=== PATIENT | male | born 1970 | race Caucasian/White ===

== ENCOUNTER → 2018-02-16 | Outpatient (CLI) | payer OTHER ==
--- NOTE | 2018-02-18 12:47 | US ---
EXAMINATION TYPE: US thyroid st tissue head/neck DATE OF EXAM: 02/16/2018 COMPARISON: NONE CLINICAL HISTORY: E03.9 Hypothyroidism. Recent abnormal labs, pt on Synthroid x 3 years GLAND SIZE: Right Lobe: 5.1 x 2.6 x 2.0 cm Overall Parenchyma: heterogenous Left Lobe: 4.5 x 2.1 x 1.8 cm Overall Parenchyma: heterogeneous Isthmus Thickness: 0.5 cm Bilateral neck scanned, no evidence of lymphadenopathy. Bilateral thyroid enlarged, grossly heterogen eous. IMPRESSION: No discrete nodules bilateral heterogenous thyroid lobes
== END | disposition home or self-care (01) ==
LOC: RADUSWWP 16:59
PROVIDERS: ATTEND Family Medicine
DX: E03.9 Hypothyroidism, unspecified (principal)
CPT/HCPCS: 76536

== ENCOUNTER → 2019-07-12 | Outpatient (CLI) | payer OTHER ==
--- NOTE | 2019-07-12 15:51 | FL ---
EXAMINATION TYPE: FL UGI air DATE OF EXAM: 07/12/2019 COMPARISON: NONE HISTORY: Gastroesophageal reflux TECHNIQUE: A double contrast UGI study is performed. FINDINGS: Esophagus dilates to normal caliber has normal contour to the gastroesophageal junction. Gastroesopha geal junction opens to normal caliber. Reflux into the distal one half of the esophagus is evident du ring the exam. There is complete stripping of the esophageal bolus the horizontal drinking position. Fundus body and antrum of the stomach visualized is normal without intraluminal or extramural defects . Barium readily empties into the normally positioned duodenal cap and sweep. Some mild fold hypertro phy of the proximal first portion of the duodenum may be present. Consider mild duodenitis.. IMPRESSION: 1. Gastroesophageal reflux in the distal one half of the esophagus. 2. Some mild proximal duodenitis is not excluded.
--- NOTE | 2019-07-12 15:56 | US ---
EXAMINATION TYPE: US abdomen complete DATE OF EXAM: 07/12/2019 COMPARISON: NONE CLINICAL HISTORY: K21.9Gastro-esophageal reflux disease with, R10.11. EXAM MEASUREMENTS: Liver Length: 14.9 cm Gallbladder Wall: 0.2 cm CBD: 0.2 cm Spleen: 12.1 cm Right Kidney: 12.4 x 5.5 x 5.2 cm Left Kidney: 11.6 x 5.4 x 5.7 cm Patient of large body habitus, technically difficult and limited exam. Pancreas: Obscured by bowel gas Liver: Increased attenuation, decreased visualization of vessels suggestive of fatty infiltrate, pro bable focal fatty sparing adjacent to gallbladder Gallbladder: no obvious masses, limited visualization Evidence for sonographic Tompkins's sign: no CBD: limited visualization, appears wnl as seen Spleen: wnl Right Kidney: wnl Left Kidney: wnl Upper IVC: wnl Abd Aorta: Mostly obscured by overlying bowel gas IMPRESSION: 1. Visualized portions of the abdomen ultrasound or unremarkable. Bowel gas causes some limitation du ring this exam.
== END | disposition home or self-care (01) ==
LOC: RADUSWWP 08:07
PROVIDERS: ATTEND Family Medicine
DX: K21.9 Gastro-esophageal reflux disease without esophagitis (principal); R14.3 Flatulence
CPT/HCPCS: 74246; 76700

== ENCOUNTER → 2019-07-25 | Outpatient (CLI) | payer OTHER ==
--- NOTE | 2019-07-25 10:01 | NM ---
EXAMINATION TYPE: NM hepatobiliary w EF DATE OF EXAM: 07/25/2019 COMPARISON: Correlation ultrasound 07/12/2019 HISTORY: 49-year-old male right upper quadrant pain TECHNIQUE: After the intravenous administration of 5.3 mCi Tc 99m Mebrofenin hepatobiliary scintigrap hy is performed. Immediate images post injection. FINDINGS: There is satisfactory initial accumulation of tracer by the liver. The gallbladder is visualized wit hin 12 minutes. The small bowel activity is noted within 6 minutes. At one hour 8 ounces of oral en sure plus is given to mimic CCK and gallbladder ejection fraction is calculated at 3 %, significantly diminished. IMPRESSION: 1. No scintigraphic evidence for acute cholecystitis. 2. However, gallbladder ejection fraction is markedly diminished at 3%. Findings can be seen with chr onic cholecystitis or biliary dyskinesia. The latter is favored given the relatively normal ultrasoun d appearance on 07/12/2019
== END | disposition home or self-care (01) ==
LOC: RADNMMAIN 06:45
PROVIDERS: ATTEND Family Medicine
DX: R10.11 Right upper quadrant pain (principal); R14.0 Abdominal distension (gaseous)
CPT/HCPCS: 78226; A9537

== ENCOUNTER 2020-01-10 08:01 | Day surgery (SDC) | payer OTHER ==
[2020-01-08 11:29] VITALS: BMI 29.6
[~2020-01-10 08:01] MED LIST: LACTATED RINGERS 1,000 ML IV SCH
[2020-01-10 08:24] VITALS: RESP 16
[2020-01-10 08:34] VITALS: TEMP 97.2
[2020-01-10] MEDS ORDERED: LIDOCAINE 1% (10MG/ML) FOR IV START INTRADERMA ONE (08:38)
[2020-01-10] MEDS ORDERED: PROPOFOL 10 MG/ML 20 ML VIAL IV ONE (09:11)
[2020-01-10] MEDS ORDERED: IV FLUID CONTINUATION 1,000 ML IV ONE (09:30)
--- NOTE | 2020-01-10 09:41 | P.PCN ---
Date of Procedure: 01/10/20 Procedure(s) Performed: BRIEF HISTORY: Patient is a 48-year-old pleasant white male scheduled for an elective colonoscopy as a part of screening for colorectal neoplasia. PROCEDURE PERFORMED: Colonoscopy. PREOPERATIVE DIAGNOSIS: Screening for colon cancer. IV sedation per Anesthesia. PROCEDURE: After informed consent was obtained, the patient, was brought into the endoscopy unit. IV sedation was administered by Anesthesia under continuous monitoring. Digital rectal examination was normal. Initially the Olympus CF-160 flexible video colonoscope was then inserted in the rectum, gradually advanced into the cecum without any difficulty. Careful examination was performed as the scope was gradually being withdrawn. Ileocecal valve and the appendiceal orifice were visualized and appeared normal. Prep was poor and several areas of the colon. Mucosa of the cecum, ascending colon, transverse colon, descending colon, sigmoid colon, and rectum appeared normal. Retroflexion was performed in the rectum and no lesions were seen. The patient tolerated the procedure well. IMPRESSION: Poor prep in several areas of the colon No evidence of colorectal neoplasia RECOMMENDATIONS: Findings of this examination were discussed with the patient as well as her family. He was advised to have a repeat colonoscopy in 5 years from now..
[2020-01-10 09:54] VITALS: BP 100/58; PULSE 48
--- NOTE | 2020-01-14 08:25 | CDI ---
Date: 01.14.2020 CDS/Leaf Sorter Name: Fely Bhakta Phone: If any questions, call Margy Rosa Warm In Worker at [phone] Patient Name: Milo Barahona Admit Date 01.10.20 Discharge Date: 01.10.20 ATTENTION: The [facility] Coding Staff appreciate your assistance in clarifying documentation. Please respond to the clarification below the line at the bottom and electronically sign. The [facility] Coding staff will review the response and follow-up if needed. Please note: Queries are made part of the Legal Health Record. If you have any questions, please contact the Warm In Worker. Dear Dr. Blanc In order to code to the greatest specificity and for the greatest reimbursement I need the following clarification: On the anesthesia record (pg 1) the anesthesiologist has documented History of polyps, but you have no mention of this on your H&P or colonoscopy. On your colonoscopy you have documented advised to have a repeat screening colonoscopy 5 years. Please clarify whether pt has history of colon polyps. Thank you for your kind consideration. MTDD
== END 2020-01-10 10:20 | disposition home or self-care (01) ==
LOC: ORWHC2ENDO 08:01
PROVIDERS: ATTEND Internal Medicine Gastroenterology
DX: Z12.11 Encounter for screening for malignant neoplasm of colon (principal); E07.9 Disorder of thyroid, unspecified; K21.9 Gastro-esophageal reflux disease without esophagitis; Z79.890 Hormone replacement therapy; Z79.899 Other long term (current) drug therapy
CPT/HCPCS: G0121; J2704

== ENCOUNTER 2020-08-04 09:07 | Inpatient (IN) | payer OTHER ==
[2020-08-04] MEDS ORDERED: ALBUTEROL HFA INHALER INHALATION STA (09:24)
[2020-08-04] MEDS ORDERED: ACETAMINOPHEN TAB 325 MG TAB PO STA (09:24)
[2020-08-04] MEDS ORDERED: ACETAMINOPHEN TAB 325 MG TAB PO PRN (09:24)
[2020-08-04] MEDS ORDERED: SODIUM CHLORIDE 0.9% 1,000 ML IV STA (09:26)
--- NOTE | 2020-08-04 09:28 | ED ---
General Adult HPI - General Chief complaint: Shortness of Breath Stated complaint: Covid+, MARY Time Seen by Provider: 08/04/20 09:10 Source: patient, RN notes reviewed Mode of arrival: ambulatory Limitations: no limitations - History of Present Illness Initial comments: Patient is a pleasant 50-year-old male presenting to the emergency Department with complaints of covid symptoms. Patient was diagnosed 9 days ago. Patient does have cough with minimal occasional sputum. Patient is having waxing and waning fevers, last Tylenol was 2 AM. Patient does feel somewhat short of breath. Patient has fatigue. Patient has nausea and vomited twice. No a bdominal pain or diarrhea. Patient feels dehydrated. - Related Data Home Medications Medication Instructions Recorded Confirmed Levothyroxine Sodium [Synthroid] 50 mcg PO DAILY 08/05/14 08/04/20 Pantoprazole Sodium [Protonix] 40 mg PO HS 08/05/14 08/04/20 ALPRAZolam [Xanax] 0.5 mg PO BID PRN 08/04/20 08/04/20 Acetaminophen Tab [Tylenol Tab] 1,000 mg PO Q6H PRN 08/04/20 08/04/20 Citalopram Hydrobromide [CeleXA] 20 mg PO HS 08/04/20 08/04/20 Tamsulosin HCl [Flomax] 0.8 mg PO HS 08/04/20 08/04/20 Allergies Allergy/AdvReac Type Severity Reaction Status Date / Time No Known Allergies Allergy Verified 08/04/20 10:47 Review of Systems ROS Statement: Those systems with pertinent positive or pertinent negative responses have been documented in the HPI. ROS Other: All systems not noted in ROS Statement are negative. Constitutional: Denies: fever Eyes: Denies: eye pain ENT: Denies: ear pain Respiratory: Reports: as per HPI, cough, dyspnea Cardiovascular: Denies: palpitations Endocrine: Reports: fatigue Gastrointestinal: Reports: nausea, vomiting. Denies: abdominal pain Genitourinary: Denies: urgency Musculoskeletal: Denies: back pain Skin: Denies: rash Neurological: Denies: confusion Past Medical History Past Medical History: GERD/Reflux, Thyroid Disorder Additional Past Medical History / Comment(s): hx migraine, constipation, bloating and change in stool, History of Any Multi-Drug Resistant Organisms: None Reported Past Surgical History: Appendectomy, Orthopedic Surgery, Tonsillectomy Additional Past Surgical History / Comment(s): left knee arthroscopy x 2, left arm tendon repair Past Anesthesia/Blood Transfusion Reactions: No Reported Reaction Past Psychological History: No Psychological Hx Reported Smoking Status: Never smoker Past Alcohol Use History: Rare Past Drug Use History: None Reported - Past Family History Mother Family Medical History: No Reported History General Exam Limitations: no limitations General appearance: alert, in no apparent distress Head exam: Present: normocephalic Eye exam: Present: normal appearance Neck exam: Present: normal inspection Respiratory exam: Present: normal lung sounds bilaterally Cardiovascular Exam: Present: regular rate, normal rhythm GI/Abdominal exam: Present: soft. Absent: tenderness Extremities exam: Present: normal inspection. Absent: pedal edema, calf tenderness Neurological exam: Present: alert Psychiatric exam: Present: normal affect, normal mood Skin exam: Present: normal color Course Vital Signs 08/04/20 08/04/20 09:12 11:17 Temperature 101.3 F H 100.0 F H Pulse Rate 60 60 Respiratory 22 22 Rate Blood Pressure 120/68 O2 Sat by Pulse 93 L 97 Oximetry EKG Findings - EKG Comments: EKG Findings:: Normal sinus rhythm 61. CT 142. QRS 86. QT 428. QTC 4:30 P left axis. Normal QRS. No acute ST change. Medical Decision Making - Medical Decision Making Patient reevaluated and updated. Patient states he is feeling somewhat better. Patient states his pulse ox was 88% at home. Dr. De La Paz has been paged for admission, covering for Dr. Oleary. - Lab Data Result diagrams: 08/04/20 09:26 08/04/20 09:26 Lab Results 08/04/20 08/04/20 08/04/20 Range/Units 09:26 09:26 09:26 WBC 4.4 (3.8-10.6) k/uL RBC 4.57 (4.30-5.90) m/uL Hgb 13.8 (13.0-17.5) gm/dL Hct 39.4 (39.0-53.0) % MCV 86.3 (80.0-100.0) fL MCH 30.2 (25.0-35.0) pg MCHC 35.0 (31.0-37.0) g/dL RDW 11.9 (11.5-15.5) % Plt Count 140 L (150-450) k/uL MPV 7.8 Neutrophils % 80 % Lymphocytes % 12 % Monocytes % 5 % Eosinophils % 0 % Basophils % 0 % Neutrophils # 3.5 (1.3-7.7) k/uL Lymphocytes # 0.6 L (1.0-4.8) k/uL Monocytes # 0.2 (0-1.0) k/uL Eosinophils # 0.0 (0-0.7) k/uL Basophils # 0.0 (0-0.2) k/uL PT 10.0 (9.0-12.0) sec INR 0.9 (<1.2) APTT 26.4 (22.0-30.0) sec D-Dimer 0.63 H (<0.60) mg/L FEU Sodium 134 L (137-145) mmol/L Potassium 4.6 (3.5-5.1) mmol/L Chloride 98 (98-107) mmol/L Carbon Dioxide 28 (22-30) mmol/L Anion Gap 8 mmol/L BUN 15 (9-20) mg/dL Creatinine 0.84 (0.66-1.25) mg/dL Est GFR (CKD-EPI)AfAm >90 (>60 ml/min/1.73 sqM) Est GFR (CKD-EPI)NonAf >90 (>60 ml/min/1.73 sqM) Glucose 109 H (74-99) mg/dL Plasma Lactic Acid Sathish (0.7-2.0) mmol/L Calcium 8.8 (8.4-10.2) mg/dL Magnesium 2.0 (1.6-2.3) mg/dL Total Bilirubin 0.8 (0.2-1.3) mg/dL AST 48 (17-59) U/L ALT 26 (4-49) U/L Alkaline Phosphatase 54 (38-126) U/L Lactate Dehydrogenase 1179 H (313-618) U/L C-Reactive Protein 166.9 H (<10.0) mg/L Total Protein 6.5 (6.3-8.2) g/dL Albumin 3.7 (3.5-5.0) g/dL 08/04/20 Range/Units 09:26 WBC (3.8-10.6) k/uL RBC (4.30-5.90) m/uL Hgb (13.0-17.5) gm/dL Hct (39.0-53.0) % MCV (80.0-100.0) fL MCH (25.0-35.0) pg MCHC (31.0-37.0) g/dL RDW (11.5-15.5) % Plt Count (150-450) k/uL MPV Neutrophils % % Lymphocytes % % Monocytes % % Eosinophils % % Basophils % % Neutrophils # (1.3-7.7) k/uL Lymphocytes # (1.0-4.8) k/uL Monocytes # (0-1.0) k/uL Eosinophils # (0-0.7) k/uL Basophils # (0-0.2) k/uL PT (9.0-12.0) sec INR (<1.2) APTT (22.0-30.0) sec D-Dimer (<0.60) mg/L FEU Sodium (137-145) mmol/L Potassium (3.5-5.1) mmol/L Chloride (98-107) mmol/L Carbon Dioxide (22-30) mmol/L Anion Gap mmol/L BUN (9-20) mg/dL Creatinine (0.66-1.25) mg/dL Est GFR (CKD-EPI)AfAm (>60 ml/min/1.73 sqM) Est GFR (CKD-EPI)NonAf (>60 ml/min/1.73 sqM) Glucose (74-99) mg/dL Plasma Lactic Acid Sathish 1.0 (0.7-2.0) mmol/L Calcium (8.4-10.2) mg/dL Magnesium (1.6-2.3) mg/dL Total Bilirubin (0.2-1.3) mg/dL AST (17-59) U/L ALT (4-49) U/L Alkaline Phosphatase (38-126) U/L Lactate Dehydrogenase (313-618) U/L C-Reactive Protein (<10.0) mg/L Total Protein (6.3-8.2) g/dL Albumin (3.5-5.0) g/dL - Radiology Data Radiology results: image reviewed (Chest x-ray does show some bilateral fluffy infiltrates lower lungs) Disposition Clinical Impression: Pneumonia due to COVID-19 virus Disposition: ADMITTED IP TO THIS HOSP Is patient prescribed a controlled substance at d/c from ED?: No Referrals: Barbie Oleary DO [Primary Care Provider] - 1-2 days Decision Time: 11:25
[2020-08-04 09:54] LABS: Basophils % (A) 0 %; Eosinophils % (A) 0 %; HCT 39.4 % (39.0-53.0); HGB 13.8 gm/dL (13.0-17.5); Lymphocytes # (A) 0.6 k/uL (1.0-4.8); Lymphocytes % (A) 12 %; MCH 30.2 pg (25.0-35.0); MCV 86.3 fL (80.0-100.0); Mean Platelet Volume 7.8; Monocytes # (A) 0.2 k/uL (0-1.0); Monocytes % (A) 5 %; Neutrophils # (A) 3.5 k/uL (1.3-7.7); Neutrophils % (A) 80 %; Platelet Count 140 k/uL (150-450); RBC 4.57 m/uL (4.30-5.90); RDW 11.9 % (11.5-15.5); WBC 4.4 k/uL (3.8-10.6)
[2020-08-04 10:09] LABS: ALT 26 U/L (4-49); AST 48 U/L (17-59); African American GFR (CKD) >90 (>60 ml/min/1.73 sqM); Albumin 3.7 g/dL (3.5-5.0); Alkaline Phosphatase 54 U/L (38-126); Anion Gap 8 mmol/L; Blood Urea Nitrogen 15 mg/dL (9-20); Calcium 8.8 mg/dL (8.4-10.2); Carbon Dioxide 28 mmol/L (22-30); Chloride 98 mmol/L (98-107); Glucose 109 mg/dL (74-99); LDH 1179 U/L (313-618); Non-African American GFR(CKD) >90 (>60 ml/min/1.73 sqM); Potassium 4.6 mmol/L (3.5-5.1); Sodium 134 mmol/L (137-145); Total Bilirubin 0.8 mg/dL (0.2-1.3); Total Protein 6.5 g/dL (6.3-8.2)
[2020-08-04 10:12] LABS: INR 0.9 (<1.2); Partial Thromboplastin Time 26.4 sec (22.0-30.0)
--- NOTE | 2020-08-04 10:13 | XR ---
EXAMINATION TYPE: XR chest 1V portable DATE OF EXAM: 08/04/2020 Comparison: None Clinical History: 1-year-old male Suspected COVID-19 pneumonia Findings: The cardiomediastinal silhouette, aorta, and pulmonary vasculature are within normal limits. There a re patchy opacities in the periphery of the mid and lower lungs. No pleural effusion. Impression: Patchy infiltrates in the mid and lower aspect of the lungs bilaterally. Findings can be seen with C OVID pneumonia.
[2020-08-04 10:42] LABS: D-Dimer 0.63 mg/L FEU (<0.60)
[2020-08-04 10:48] LABS: C Reactive Protein 166.9 mg/L (<10.0)
[2020-08-04] MEDS ORDERED: NALOXONE 0.4 MG/ML 1 ML VIAL IV PRN (11:27)
[2020-08-04] MEDS: ZINC SULFATE 220 MG CAP PO SCH (12:50)
[2020-08-04] MEDS: SODIUM CHLORIDE 0.9% 1,000 ML IV SCH (12:50)
[2020-08-04] MEDS: ASCORBIC ACID 500 MG TAB PO SCH ×2 (12:51→21:42)
[2020-08-04] MEDS: CHOLECALCIFEROL 25 MCG (1000 IU) TABLET PO SCH (12:51)
[2020-08-04] MEDS: ENOXAPARIN 40 MG/0.4 ML SYRINGE SQ SCH (12:52)
[2020-08-04] MEDS: DEXAMETHASONE SOD PHOSPHATE 10 MG/ML 1 ML VIAL IV SCH (12:52)
[2020-08-04] MEDS ORDERED: ACETAMINOPHEN TAB 500 MG TAB PO PRN (13:05)
[2020-08-04 16:31] LABS: Ferritin 1087.2 ng/mL (22.0-322.0)
--- NOTE | 2020-08-04 20:50 | P.HPIM ---
History of Present Illness This is a pleasant 50 years old male with past medical history of GERD, hypothyroidism, constipation, migraine. Patient presents because of breathing difficulty and chest discomfort He was tested positive for frias virus on 07/26 his works at [employer] was tested positive for Covid on July 25, he had some chest tightness and coughing on 07/26 so he went and tested for coronavirus, he has little white phlegm as well but 6 days ago he started having shortness of breath which made him very suspicious having the first infection, not patient has been tested every 2 weeks negative for coronavirus distal 07/26 because he works at [employer]. He has right upper chest pain with coughing only. No diarrhea. No abdominal pain or nausea vomiting. No weakness or headache. He denies smoking, alcohol or illicit drugs. On admission he is febrile at 101.3. He is saturating 93% on room air and 97% and 2-3 L oxygen nasal cannula. His respiratory rate of 22 breaths per minute CBC, BMP and liver enzymes are unremarkable. D-dimer is slightly elevated at 0.63. Lactate dehydrogenase is elevated at 1179 and C-reactive protein at 166. EKG showing normal sinus rhythm at [address]-T changes. Chest x-ray: Showing patchy infiltrates in the mid and lower aspects of the lungs bilaterally. Findings are consistent with covid pneumonia In the emergency room patient was started on Lovenox, vitamin C and Review of Systems CONSTITUTIONAL: No fever, no malaise, no fatigue. HEENT: No recent visual problems or hearing problems. Denied any sore throat. CARDIOVASCULAR: No orthopnea, PND, no palpitations, no syncope. PULMONARY: No chest wall tenderness, no hemoptysis. GASTROINTESTINAL: No diarrhea, no nausea, no vomiting, no abdominal pain. Normoactive bowel sounds. NEUROLOGICAL: No headaches, no weakness, no numbness. HEMATOLOGICAL: Denies any bleeding or petechiae. GENITOURINARY: Denies any burning micturition, frequency, or urgency. MUSCULOSKELETAL/RHEUMATOLOGICAL: Denies any joint pain, swelling, or any muscle pain. ENDOCRINE: Denies any polyuria or polydipsia. Past Medical History Past Medical History: GERD/Reflux, Thyroid Disorder Additional Past Medical History / Comment(s): hx migraine, constipation, bloating and change in stool, History of Any Multi-Drug Resistant Organisms: None Reported Past Surgical History: Appendectomy, Orthopedic Surgery, Tonsillectomy Additional Past Surgical History / Comment(s): left knee arthroscopy x 2, left arm tendon repair Past Anesthesia/Blood Transfusion Reactions: No Reported Reaction Past Psychological History: No Psychological Hx Reported Smoking Status: Never smoker Past Alcohol Use History: Rare Past Drug Use History: None Reported - Past Family History Mother Family Medical History: No Reported History Medications and Allergies Home Medications Medication Instructions Recorded Confirmed Type Levothyroxine Sodium [Synthroid] 50 mcg PO DAILY 08/05/14 08/04/20 History Pantoprazole Sodium [Protonix] 40 mg PO HS 08/05/14 08/04/20 History ALPRAZolam [Xanax] 0.5 mg PO BID PRN 08/04/20 08/04/20 History Acetaminophen Tab [Tylenol Tab] 1,000 mg PO Q6H PRN 08/04/20 08/04/20 History Citalopram Hydrobromide [CeleXA] 20 mg PO HS 08/04/20 08/04/20 History Tamsulosin HCl [Flomax] 0.8 mg PO HS 08/04/20 08/04/20 History Allergies Allergy/AdvReac Type Severity Reaction Status Date / Time No Known Allergies Allergy Verified 08/04/20 10:47 Physical Exam Vitals: Vital Signs Temp Pulse Resp BP Pulse Ox 08/04/20 11:17 100.0 F H 60 22 97 08/04/20 09:12 101.3 F H 60 22 120/68 93 L Intake and Output 08/03/20 08/04/20 08/04/20 22:59 06:59 14:59 Other: Weight 81.647 kg GENERAL: The patient is alert and oriented x3, not in any acute distress. Well developed, well nourished. HEENT: Pupils are round and equally reacting to light. EOMI. No scleral icterus. No conjunctival pallor. Normocephalic, atraumatic. No pharyngeal erythema. No thyromegaly. CARDIOVASCULAR: S1 and S2 present. No murmurs, rubs, or gallops. PULMONARY: Chest is clear to auscultation, no wheezing or crackles. ABDOMEN: Soft, nontender, nondistended, normoactive bowel sounds. No palpable organomegaly. MUSCULOSKELETAL: No joint swelling or deformity. EXTREMITIES: No cyanosis, clubbing, or pedal edema. NEUROLOGICAL: Gross neurological examination did not reveal any focal deficits. SKIN: No rashes. No petechiae Results CBC & Chem 7: 08/04/20 09:26 08/04/20 09:26 Labs: Abnormal Lab Results - Last 24 Hours (Table) 08/04/20 08/04/20 08/04/20 Range/Units 09:26 09:26 09:26 Plt Count 140 L (150-450) k/uL Lymphocytes # 0.6 L (1.0-4.8) k/uL D-Dimer 0.63 H (<0.60) mg/L FEU Sodium 134 L (137-145) mmol/L Glucose 109 H (74-99) mg/dL Lactate Dehydrogenase 1179 H (313-618) U/L C-Reactive Protein 166.9 H (<10.0) mg/L Assessment and Plan Assessment: Acute covid pneumonitis Acute hypoxic respiratory failure Increase inflammatory markers Hypothyroidism History of migraine History of constipation History of GERD Plan: This is a pleasant 50 years old male who presents with acute Covid pneumonia and acute hypoxic respiratory failure. Start the patient on vitamin C, zinc, dexamethasone. Lovenox is started and monitored d-dimer. Check a procalcitonin. Call for pulmonary consult. Labs and medication were reviewed.. Continue same treatment. Continue with symptomatic treatment. Resume home medication. Monitor lytes and vitals. DVT and GI prophylaxis. Further recommendations depends on the clinical course of the patient DVT prophylaxis: Subcutaneous Lovenox GI Prophylaxis: Ppi Prognosis is guarded
[2020-08-04] MEDS: TAMSULOSIN 0.4 MG CAP.ER.24H PO SCH (21:41)
[2020-08-04] MEDS: CITALOPRAM HYDROBROMIDE 20 MG TAB PO SCH (21:41)
[2020-08-04] MEDS: PANTOPRAZOLE 40 MG TABLET PO SCH (21:41)
[2020-08-05 05:02] LABS: Glucose,Whole Blood 142 mg/dL (75-99)
[2020-08-05] MEDS: LEVOTHYROXINE 50 MCG TAB PO SCH (06:23)
[2020-08-05] MEDS: DEXAMETHASONE SOD PHOSPHATE 10 MG/ML 1 ML VIAL IV SCH (08:12)
[2020-08-05] MEDS: ENOXAPARIN 40 MG/0.4 ML SYRINGE SQ SCH (08:25)
[2020-08-05] MEDS: ASCORBIC ACID 500 MG TAB PO SCH ×2 (08:26→21:58)
[2020-08-05] MEDS: ZINC SULFATE 220 MG CAP PO SCH (08:26)
[2020-08-05] MEDS: CHOLECALCIFEROL 25 MCG (1000 IU) TABLET PO SCH (08:26)
[2020-08-05] MEDS: DOXYCYCLINE 100 MG CAP PO SCH ×2 (10:50→21:58)
--- NOTE | 2020-08-05 15:55 | P.CNPUL ---
History of Present Illness Consult date: 08/05/20 Reason for consult: dyspnea, cough, hypoxemia Chief complaint: Shortness of breath and cough started 2 days ago History of present illness: This is a 50-year-old male with prior medical history significant for hypothyroidism and GERD and chronic migraine headache she he came into the hospital with tooth the day history of increased cough shortness of breath and difficulty in breathing, patient tested positive for cold with 19 on July 26, also his diagnosed with cold with pneumonia back in July 25 he has been bhatt ving mild headache all along except 2 days ago started having difficulty in breathing, spiking fever oxygen saturation is 90-93% with supplemental oxygen they do improve, patient noted to have a bilateral patchy infiltrate as well as elevated d-dimer, currently patient is resting comfortably but does get short of breath intermittently especially on activity Past Medical History Past Medical History: GERD/Reflux, Thyroid Disorder Additional Past Medical History / Comment(s): hx migraine, constipation, bloating and change in stool, History of Any Multi-Drug Resistant Organisms: None Reported Past Surgical History: Appendectomy, Orthopedic Surgery, Tonsillectomy Additional Past Surgical History / Comment(s): left knee arthroscopy x 2, left arm tendon repair Past Anesthesia/Blood Transfusion Reactions: No Reported Reaction Past Psychological History: No Psychological Hx Reported Smoking Status: Never smoker Past Alcohol Use History: Rare Past Drug Use History: None Reported - Past Family History Mother Family Medical History: No Reported History Medications and Allergies Home Medications Medication Instructions Recorded Confirmed Type Levothyroxine Sodium [Synthroid] 50 mcg PO DAILY 08/05/14 08/04/20 History Pantoprazole Sodium [Protonix] 40 mg PO HS 08/05/14 08/04/20 History ALPRAZolam [Xanax] 0.5 mg PO BID PRN 08/04/20 08/04/20 History Acetaminophen Tab [Tylenol Tab] 1,000 mg PO Q6H PRN 08/04/20 08/04/20 History Citalopram Hydrobromide [CeleXA] 20 mg PO HS 08/04/20 08/04/20 History Tamsulosin HCl [Flomax] 0.8 mg PO HS 08/04/20 08/04/20 History Allergies Allergy/AdvReac Type Severity Reaction Status Date / Time No Known Allergies Allergy Verified 08/04/20 10:47 Physical Exam Vitals: Vital Signs Temp Pulse Pulse Resp BP BP Pulse Ox 08/05/20 14:00 98.5 F 59 L 16 110/63 90 L 08/05/20 10:23 97.8 F 64 20 116/67 92 L 08/05/20 09:31 94 L 08/05/20 08:31 18 94 L 08/05/20 08:10 20 08/05/20 05:30 98.4 F 58 L 110/68 97 08/05/20 02:03 97.9 F 49 L 107/53 97 08/04/20 22:25 97.9 F 51 L 21 108/68 97 08/04/20 18:20 98.0 F 59 L 16 108/66 97 08/04/20 18:02 98.3 F 60 18 112/66 96 Intake and Output 08/05/20 08/05/20 08/05/20 06:59 14:59 22:59 Intake Total 200 Output Total 1200 Balance -1000 Intake: Intake, IV Titration 200 Amount Sodium Chloride 0.9% 1, 200 000 ml @ 20 mls/hr IV . Q24H [facility] Rx#:[id number] Output: Urine 1200 - Constitutional General appearance: average body habitus, cooperative, disheveled - EENT Eyes: EOMI, PERRLA Ears: bilateral: normal - Neck Neck: normal ROM Carotids: bilateral: upstroke normal Thyroid: bilateral: normal size - Respiratory Respiratory: bilateral: wheezing - Cardiovascular Rhythm: regular Heart sounds: normal: S1, S2 - Gastrointestinal General gastrointestinal: normal bowel sounds, soft - Integumentary Integumentary: normal turgor - Neurologic Neurologic: CNII-XII intact - Musculoskeletal Musculoskeletal: gait normal, generalized weakness, strength equal bilaterally - Psychiatric Psychiatric: A&O x's 3, appropriate affect, intact judgment & insight Results - Laboratory Findings CBC and BMP: 08/04/20 09:26 08/04/20 09:26 PT/INR, D-dimer PT 10.0 sec (9.0-12.0) 08/04/20 09:26 INR 0.9 (<1.2) 08/04/20 09:26 D-Dimer 0.63 mg/L FEU (<0.60) H 08/04/20 09:26 Abnormal lab findings: Abnormal Labs 08/04/20 08/04/2021 09:26 09:26 09:26 Plt Count 140 L Lymphocytes # 0.6 L D-Dimer 0.63 H Sodium 134 L Glucose 109 H POC Glucose (mg/dL) Ferritin 1087.2 H Lactate Dehydrogenase 1179 H C-Reactive Protein 166.9 H Procalcitonin 08/04/20 08/05/20 09:26 05:00 Plt Count Lymphocytes # D-Dimer Sodium Glucose POC Glucose (mg/dL) 142 H Ferritin Lactate Dehydrogenase C-Reactive Protein Procalcitonin 0.19 H - Diagnostic Findings Chest x-ray: report reviewed, image reviewed (Finding as noted above) Assessment and Plan Assessment: Acute hypoxic respiratory failure Code 19 pneumonia Hypothyroidism Elevated d-dimer due to inflammatory process GERD Plan: Continue supplemental oxygen Deep breathing exercise incentive spirometry Prone positioning Patient is not a candidate for REMdesivir as he is out of beneficial timeframe of therapy IV Decadron Lovenox Further recommendations pending plan of care as per clinical response of the patient Time with Patient: Greater than 30
--- NOTE | 2020-08-05 16:07 | P.PN ---
Subjective This is a pleasant 50 years old male with past medical history of GERD, hypothyroidism, constipation, migraine. 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 He has right upper chest pain with coughing only. No diarrhea. No abdominal pain or nausea vomiting. No weakness or headache. He denies smoking, alcohol or illicit drugs. On admission he is febrile at 101.3. He is saturating 93% on room air and 97% and 2-3 L oxygen nasal cannula. His respiratory rate of 22 breaths per minute CBC, BMP and liver enzymes are unremarkable. D-dimer is slightly elevated at 0.63. Lactate dehydrogenase is elevated at 1179 and C-reactive protein at 166. EKG showing normal sinus rhythm at [address]-T changes. Chest x-ray: Showing patchy infiltrates in the mid and lower aspects of the lungs bilaterally. Findings are consistent with covid pneumonia In the emergency room patient was started on Lovenox, vitamin C and 08/05/2020 Of some dyspnea although he feels a breathing is good and stable. He still have a little cough. And on examination he still have a bronchial breathing He is saturating 92% on 2 L oxygen this morning and distal vitals are stable. Broadcalcitonin is elevated at 0.19, he was started on ceftriaxone and Zith romax. Also I'll consult infectious disease team Lactate dehydrogenase is elevated at 1179, C-reactive protein 166, ferritin 1087 Review of Systems CONSTITUTIONAL: No fever, no malaise, no fatigue. HEENT: No recent visual problems or hearing problems. Denied any sore throat. CARDIOVASCULAR: No orthopnea, PND, no palpitations, no syncope. PULMONARY: No chest wall tenderness, no hemoptysis. GASTROINTESTINAL: No diarrhea, no nausea, no vomiting, no abdominal pain. Normoactive bowel sounds. NEUROLOGICAL: No headaches, no weakness, no numbness. Active Medications Generic Name Dose Route Start Last Admin Trade Name Freq PRN Reason Stop Dose Admin Acetaminophen 1,000 mg 08/04/20 13:05 08/04/20 18:09 Acetaminophen Tab 500 Mg Tab PO 1,000 mg Q6H PRN Administration Fever Alprazolam 0.5 mg 08/04/20 13:05 Alprazolam 0.5 Mg Tab PO BID PRN Anxiety Ascorbic Acid 500 mg 08/04/20 11:30 08/05/20 08:26 Ascorbic Acid 500 Mg Tab PO 500 mg BID [facility] Administration Benzocaine/Menthol 1 each 08/04/20 18:42 Benzocaine/Menthol Lozeng 1 Each Lozenge MUCOUS MEM Q4HR PRN Sore Throat Cholecalciferol 125 mcg 08/04/20 11:30 08/05/20 08:26 Cholecalciferol 25 Mcg (1000 Iu) Tablet PO 125 mcg DAILY [facility] Administration Citalopram Hydrobromide 20 mg 08/04/20 21:00 08/04/20 21:41 Citalopram Hydrobromide 20 Mg Tab PO Not Given HS [facility] Dexamethasone Sodium Phosphate 6 mg 08/04/20 11:30 08/05/20 08:12 Dexamethasone Sod Phosphate 10 Mg/Ml 1 Ml Vial IV 6 mg DAILY [facility] Administration Doxycycline Monohydrate 100 mg 08/05/20 09:00 08/05/20 10:50 Doxycycline 100 Mg Cap PO 100 mg BID [facility]EN Administration Enoxaparin Sodium 40 mg 08/04/20 11:30 08/05/20 08:25 Enoxaparin 40 Mg/0.4 Ml Syringe SQ 40 mg DAILY [facility] Administration Sodium Chloride 1,000 mls @ 20 mls/hr 08/04/20 11:30 08/04/20 12:50 Saline 0.9% IV 20 mls/hr .Q24H [facility] Administration Ceftriaxone Sodium 1 gm/ 50 mls @ 100 mls/hr 08/05/20 09:00 08/05/20 10:49 Sodium Chloride IVPB 100 mls/hr Q24HR [facility] Administration Levothyroxine Sodium 50 mcg 08/05/20 06:30 08/05/20 06:23 Levothyroxine 50 Mcg Tab PO 50 mcg 0630 [facility] Administration Naloxone HCl 0.2 mg 08/04/20 11:27 Naloxone 0.4 Mg/Ml 1 Ml Vial IV Q2M PRN Opioid Reversal Pantoprazole Sodium 40 mg 08/04/20 21:00 08/04/20 21:41 Pantoprazole 40 Mg Tablet PO Not Given HS [facility] Tamsulosin HCl 0.8 mg 08/04/20 21:00 08/04/20 21:41 Tamsulosin 0.4 Mg Cap.Er.24h PO Not Given HS [facility] Zinc Sulfate 220 mg 08/04/20 11:30 08/05/20 08:26 Zinc Sulfate 220 Mg Cap PO 220 mg DAILY [facility]EN Administration Objective - Vital Signs Vital signs: Vital Signs Temp 98.5 F 08/05/20 14:00 Pulse 59 L 08/05/20 14:00 Resp 16 08/05/20 14:00 BP 110/63 08/05/20 14:00 Pulse Ox 90 L 08/05/20 14:00 Intake & Output 08/04/20 08/05/20 08/05/20 18:59 06:59 18:59 Intake Total 200 Output Total 1200 Balance -1000 Weight 81.647 kg Intake: Intake, IV Titration 200 Amount Sodium Chloride 0.9% 1, 200 000 ml @ 20 mls/hr IV . Q24H [facility] Rx#:[id number] Output: Urine 1200 - Labs CBC & Chem 7: 08/04/20 09:26 08/04/20 09:26 Labs: Abnormal Lab Results - Last 24 Hours (Table) 08/04/20 08/04/20 08/05/20 Range/Units 09:26 09:26 05:00 POC Glucose (mg/dL) 142 H (75-99) mg/dL Ferritin 1087.2 H (22.0-322.0) ng/mL Procalcitonin 0.19 H (0.02-0.09) ng/mL Microbiology - Last 24 Hours (Table) 08/04/20 09:41 Blood Culture - Preliminary Blood No Growth after 24 hours 08/04/20 09:26 Blood Culture - Preliminary Blood No Growth after 24 hours Assessment and Plan Assessment: Acute covid pneumonitis with possible bacterial superinfection Acute hypoxic respiratory failure Increase inflammatory markers Hypothyroidism History of migraine History of constipation History of GERD Plan: This is a pleasant 50 years old male who presents with acute Covid pneumonia and acute hypoxic respiratory failure. Start the patient on vitamin C, zinc, dexamethasone. Lovenox is started and monitored d-dimer. Start ceftriaxone and Zithromax. Follow-up with a recommendation from infectious disease and pulmonary consult. Labs and medication were reviewed.. Continue same treatment. Continue with symptomatic treatment. Resume home medication. Monitor lytes and vitals. DVT and GI prophylaxis. Further recommendations depends on the clinical course of the patient DVT prophylaxis: Subcutaneous Lovenox GI Prophylaxis: Ppi Prognosis is guarded
[2020-08-05] MEDS: SODIUM CHLORIDE 0.9% 1,000 ML IV SCH (17:58)
[2020-08-05] MEDS: ALPRAZolam 0.5 MG TAB PO PRN (21:58)
[2020-08-05] MEDS: PANTOPRAZOLE 40 MG TABLET PO SCH (21:59)
[2020-08-05] MEDS: TAMSULOSIN 0.4 MG CAP.ER.24H PO SCH (21:59)
[2020-08-05] MEDS: CITALOPRAM HYDROBROMIDE 20 MG TAB PO SCH (21:59)
[2020-08-05] MEDS: BENZOCAINE/MENTHOL LOZENG 1 EACH LOZENGE MUCOUS MEM PRN (21:59)
[2020-08-06] MEDS: LEVOTHYROXINE 50 MCG TAB PO SCH ×2 (06:19→07:37)
[2020-08-06] MEDS: SODIUM CHLORIDE 0.9% 1,000 ML IV SCH (06:20)
--- NOTE | 2020-08-06 06:32 | CONS ---
CONSULTATION DATE OF SERVICE: 08/05/2020 REASON FOR CONSULTATION: COVID-19. HISTORY OF PRESENT ILLNESS: The patient is a 50-year-old male presenting to the ER at [facility] yesterday morning for evaluation of weakness, lethargic, no energy, in addition to the shortness of breath and cough. The patient's symptoms have been going on since July 25 in this patient who denies having any headache. Initially started with more of a sore throat and URI symptoms and cold. Initially felt a little better and then afterwards started having more symptoms, more shortness of breath and cough which has been moderate in intensity with occasional sputum production. Denies any pleuritic chest pain, nausea and did have 2 times vomited. Denies any abdominal pain. Did have some diarrhea. With these symptoms, the patient was evaluated by the ER physician. On arrival to the ER, the patient did have fever of 101.9 Fahrenheit. No fever since then. The patient is currently 92% on 2 L nasal cannula. The patient did have a normal white count with lymphopenia and elevated D-dimer. Kidney function was normal. Inflammatory markers are elevated. Liver enzymes are normal. Prograf 0.19. The patient has been treated with Rocephin and doxycycline in addition to the dexamethasone and Lovenox. Infectious Disease was consulted for further management regarding his COVID infection. REVIEW OF SYSTEMS: Positive points have been mentioned in HPI. Rest of systems are negative. PAST MEDICAL HISTORY: Gastroesophageal reflux disease, hypothyroidism, migraine headache. PAST SURGICAL HISTORY: Appendectomy, left knee arthroscopy, left arm tendon repair. SOCIAL HISTORY: No history of smoking. No drinking or drug use. FAMILY HISTORY: No pertinent findings noticed. ALLERGIES: No known drug allergies. MEDICATIONS: The patient is currently on Tylenol, Xanax, vitamin C, Cepacol lozenges, Rocephin 1 g daily, Celexa, Decadron, doxycycline, Lovenox, Synthroid, Narcan, Flomax, and zinc. PHYSICAL EXAMINATION: VITAL SIGNS: Blood pressure 106/66 with a pulse of 62, temperature 98.5, he is 92% on 2 L nasal cannula. GENERAL DESCRIPTION: Patient is a middle-aged male lying in bed in no distress. No tachypnea or accessory muscles of respiration use. HEENT: Examination shows no pallor or scleral icterus. Oral mucous membrane is dry. NECK: Trachea central, no thyromegaly. LUNGS: Unlabored breathing, decreased breath sounds at the bases. No wheeze or crackle. HEART: S1-S2, regular rate and rhythm. ABDOMEN: Soft, no tenderness. No guarding or rigidity. EXTREMITIES: No edema of the feet. SKIN: No rash or mass palpable. NEUROLOGICAL: Patient is awake, alert, oriented times three. Mood and affect normal. LABS: Hemoglobin is 13.2, white count 4.4, d-dimer is 0.63. Liver enzymes are normal. Inflammatory markers elevated. Chest x-ray, bilateral interstitial infiltrates. DIAGNOSTIC IMPRESSION: Patient admitted to the hospital with weakness, no energy, shortness of breath and cough. This patient has been diagnosed with COVID-19 infection. The patient's symptoms have been going on for more than 10 days now and apparently was considered to be not part of the therapeutic window for the remdesivir therapy and seems to have shown response to the current supportive treatment. PLAN: 1. The patient to continue with Lovenox, dexamethasone, zinc, ascorbic acid. 2. May continue with Rocephin and doxycycline in view of the elevated procalcitonin. 3. Droplet isolation and respiratory support. 4. We will follow on clinical condition to further adjust medication if needed. Thank you for this consultation. Will follow this patient along with you. MMODL / IJN: [id number] /
[2020-08-06] MEDS: DEXAMETHASONE SOD PHOSPHATE 10 MG/ML 1 ML VIAL IV SCH (07:38)
[2020-08-06] MEDS: ASCORBIC ACID 500 MG TAB PO SCH ×2 (07:39→20:48)
[2020-08-06] MEDS: ZINC SULFATE 220 MG CAP PO SCH (07:39)
[2020-08-06] MEDS: CHOLECALCIFEROL 25 MCG (1000 IU) TABLET PO SCH (07:39)
[2020-08-06] MEDS: ENOXAPARIN 40 MG/0.4 ML SYRINGE SQ SCH (07:39)
[2020-08-06] MEDS: DOXYCYCLINE 100 MG CAP PO SCH ×2 (07:41→20:49)
--- NOTE | 2020-08-06 11:16 | P.PN ---
Subjective Progress Note Date: 08/06/20 Principal diagnosis: Acute hypoxic respiratory failure Code 19 pneumonia Secondary bacterial pneumonia Hypothyroidism Elevated d-dimer due to inflammatory process GERD 08/06/2020, patient seen eval reexamined during the rounds labs reviewed medications reviewed care plan discussed, patient continued to have cough shortness of breath, any sputum production, discussed with primary service as well as the RN to obtain a sputum sample patient remains on broad-spectrum antibiotics, and steroids with supplemental oxygen, patient noted to have elevated d-dimer coming down, inflammatory parameters including ferritin, LDH and C-reactive protein elevated pro calcitonin is also elevated This is a 50-year-old male with prior medical history significant for hypothyroidism and GERD and chronic migraine headache she he came into the hospital with tooth the day history of increased cough shortness of breath and difficulty in breathing, patient tested positive for cold with 19 on July 26, also his diagnosed with cold with pneumonia back in July 25 he has been having mild headache all along except 2 days ago started having difficulty in breathing, spiking fever oxygen saturation is 90-93% with supplemental oxygen they do improve, patient noted to have a bilateral patchy infiltrate as well as elevated d-dimer, currently patient is resting comfortably but does get short of breath intermittently especially on activity Objective - Vital Signs Vital signs: Vital Signs Temp 97.7 F 08/06/20 10:01 Pulse 45 L 08/06/20 10:01 Resp 17 08/06/20 10:01 BP 107/67 08/06/20 10:01 Pulse Ox 92 L 08/06/20 10:01 Intake & Output 08/05/20 08/06/20 08/06/20 18:59 06:59 18:59 Intake Total 500 240 Balance 500 240 Intake: Intake, IV Titration 500 240 Amount Sodium Chloride 0.9% 1, 400 240 000 ml @ 20 mls/hr IV . Q24H [facility] Rx#:[id number] cefTRIAXone 1 gm In 100 Sodium Chloride 0.9% 50 ml @ 100 mls/hr IVPB Q24HR [facility] Rx#:[id number] Other: # Voids 2 - Exam - Constitutional General appearance: average body habitus, cooperative, disheveled - EENT Eyes: EOMI, PERRLA Ears: bilateral: normal - Neck Neck: normal ROM Carotids: bilateral: upstroke normal Thyroid: bilateral: normal size - Respiratory Respiratory: bilateral: wheezing - Cardiovascular Rhythm: regular Heart sounds: normal: S1, S2 - Gastrointestinal General gastrointestinal: normal bowel sounds, soft - Integumentary Integumentary: normal turgor - Neurologic Neurologic: CNII-XII intact - Musculoskeletal Musculoskeletal: gait normal, generalized weakness, strength equal bilaterally - Psychiatric Psychiatric: A&O x's 3, appropriate affect, intact judgment & insight - Labs CBC & Chem 7: 08/04/20 09:26 08/04/20 09:26 Labs: Microbiology - Last 24 Hours (Table) 08/05/20 12:36 Gram Stain - Preliminary Sputum Sputum Culture - Preliminary 08/04/20 09:41 Blood Culture - Preliminary Blood No Growth after 24 hours 08/04/20 09:26 Blood Culture - Preliminary Blood No Growth after 24 hours Assessment and Plan Assessment: Acute hypoxic respiratory failure Code 19 pneumonia Secondary bacterial pneumonia Hypothyroidism Elevated d-dimer due to inflammatory process GERD Plan: Continue supplemental oxygen Deep breathing exercise incentive spirometry Prone positioning Patient is not a candidate for REMdesivir as he is out of beneficial timeframe of therapy IV Decadron Sputum culture Broad-spectrum antibiotics Lovenox Further recommendations pending plan of care as per clinical response of the patient Time with Patient: Greater than 30
[2020-08-06 11:57] LABS: Basophils # (A) 0.01 X 10*3/uL (0.00-0.10); Basophils % (A) 0.1 %; Eosinophils # (A) 0 X 10*3/uL (0.04-0.35); Eosinophils % (A) 0 %; HCT 40.8 % (39.6-50.0); HGB 13.9 g/dL (13.0-17.0); Lymphocytes # (A) 0.96 X 10*3/uL (0.90-5.00); MCH 30.5 pg (27.0-32.0); MCHC 34.1 g/dL (32.0-37.0); MCV 89.5 fL (80.0-97.0); Monocytes # (A) 0.54 X 10*3/uL (0.20-1.00); Monocytes % (A) 5.6 %; Neutrophils # (A) 8.06 X 10*3/uL (1.80-7.70); Neutrophils % (A) 83.7 %; Platelet Count 226 X 10*3/uL (140-440); RBC 4.56 X 10*6/uL (4.40-5.60); RDW 11.5 % (11.5-14.5); WBC 9.63 X 10*3/uL (4.50-10.00)
[2020-08-06 12:19] LABS: BUN/Creat Ratio 26.25 Ratio (12.00-20.00); C Reactive Protein 4.8 mg/dL (0.0-0.8); Non-African American GFR(CKD) 102.7 (60.0-200.0); Potassium 4.9 mmol/L (3.5-5.5)
--- NOTE | 2020-08-06 12:33 | P.PN ---
Subjective This is a pleasant 50 years old male with past medical history of GERD, hypothyroidism, constipation, migraine. Patient presents because of breathing difficulty and chest discomfort He was tested positive for frias virus on 07/26 his works at [employer] was tested positive for Covid on July 25, he had some chest tightness and coughing on 07/26 so he went and tested for coronavirus, he has little white phlegm as well but 6 days ago he started having shortness of breath which made him very suspicious having the first infection, not patient has been tested every 2 weeks negative for coronavirus distal 07/26 because he works at [employer]. He has right upper chest pain with coughing only. No diarrhea. No abdominal pain or nausea vomiting. No weakness or headache. He denies smoking, alcohol or illicit drugs. On admission he is febrile at 101.3. He is saturating 93% on room air and 97% and 2-3 L oxygen nasal cannula. His respiratory rate of 22 breaths per minute CBC, BMP and liver enzymes are unremarkable. D-dimer is slightly elevated at 0.63. Lactate dehydrogenase is elevated at 1179 and C-reactive protein at 166. EKG showing normal sinus rhythm at [address]-T changes. Chest x-ray: Showing patchy infiltrates in the mid and lower aspects of the lungs bilaterally. Findings are consistent with covid pneumonia In the emergency room patient was started on Lovenox, vitamin C and 08/05/2020 Of some dyspnea although he feels a breathing is good and stable. He still have a little cough. And on examination he still have a bronchial breathing He is saturating 92% on 2 L oxygen this morning and distal vitals are stable. Broadcalcitonin is elevated at 0.19, he was started on ceftriaxone and Zith romax. Also I'll consult infectious disease team Lactate dehydrogenase is elevated at 1179, C-reactive protein 166, ferritin 1087 08/06/2020 Patient remains slightly tachypneic and dyspneic. He is mildly hypoxic with oxygen saturation 92% and 2 L oxygen via nasal cannula, heart rate is 45-58. Labs showing stable CBC with slightly elevated WBC within the reference range at 9.6 but also patient is on steroids. D-dimer is normal today at 0.38. BMP is unremarkable C-reactive protein is trending down to 4.8 Sputum culture specimen is contaminated and repeat sputum culture is ordered per recommendation Patient remains on doxycycline, ceftriaxone as well as dexamethasone, vitamin C and zinc Pulmonary team on the case Check TSH and echocardiogram and consider cardiology consultation. tele: Sinus bradycardia 40-60 Review of Systems CONSTITUTIONAL: No fever, no malaise, no fatigue. HEENT: No recent visual problems or hearing problems. Denied any sore throat. CARDIOVASCULAR: No orthopnea, PND, no palpitations, no syncope. PULMONARY: No chest wall tenderness, no hemoptysis. GASTROINTESTINAL: No diarrhea, no nausea, no vomiting, no abdominal pain. Normoactive bowel sounds. NEUROLOGICAL: No headaches, no weakness, no numbness. Active Medications Generic Name Dose Route Start Last Admin Trade Name Freq PRN Reason Stop Dose Admin Acetaminophen 1,000 mg 08/04/20 13:05 08/04/20 18:09 Acetaminophen Tab 500 Mg Tab PO 1,000 mg Q6H PRN Administration Fever Alprazolam 0.5 mg 08/04/20 13:05 08/05/20 21:58 Alprazolam 0.5 Mg Tab PO 0.5 mg BID PRN Administration Anxiety Ascorbic Acid 500 mg 08/04/20 11:30 08/06/20 07:39 Ascorbic Acid 500 Mg Tab PO 500 mg BID QUYEN Administration Benzocaine/Menthol 1 each 08/04/20 18:42 08/05/20 21:59 Benzocaine/Menthol Lozeng 1 Each Lozenge MUCOUS MEM 1 each Q4HR PRN Administration Sore Throat Cholecalciferol 125 mcg 08/04/20 11:30 08/06/20 07:39 Cholecalciferol 25 Mcg (1000 Iu) Tablet PO 125 mcg DAILY QUYEN Administration Citalopram Hydrobromide 20 mg 08/04/20 21:00 08/05/20 21:59 Citalopram Hydrobromide 20 Mg Tab PO 20 mg HS [facility]EN Administration Dexamethasone Sodium Phosphate 6 mg 08/04/20 11:30 08/06/20 07:38 Dexamethasone Sod Phosphate 10 Mg/Ml 1 Ml Vial IV 6 mg DAILY QUYEN Administration Doxycycline Monohydrate 100 mg 08/05/20 09:00 08/06/20 07:41 Doxycycline 100 Mg Cap PO 100 mg BID QUYEN Administration Enoxaparin Sodium 40 mg 08/04/20 11:30 08/06/20 07:39 Enoxaparin 40 Mg/0.4 Ml Syringe SQ 40 mg DAILY QUYEN Administration Sodium Chloride 1,000 mls @ 20 mls/hr 08/04/20 11:30 08/06/20 06:20 Saline 0.9% IV 20 mls/hr .Q24H QU[facility]EN Administration Ceftriaxone Sodium 1 gm/ 50 mls @ 100 mls/hr 08/05/20 09:00 08/06/20 07:39 Sodium Chloride IVPB 100 mls/hr Q24HR [facility] Administration Levothyroxine Sodium 50 mcg 08/05/20 06:30 08/06/20 07:37 Levothyroxine 50 Mcg Tab PO Not Given 0630 [facility] Naloxone HCl 0.2 mg 08/04/20 11:27 Naloxone 0.4 Mg/Ml 1 Ml Vial IV Q2M PRN Opioid Reversal Pantoprazole Sodium 40 mg 08/04/20 21:00 08/05/20 21:59 Pantoprazole 40 Mg Tablet PO 40 mg HS [facility] Administration Tamsulosin HCl 0.8 mg 08/04/20 21:00 08/05/20 21:59 Tamsulosin 0.4 Mg Cap.Er.24h PO 0.8 mg HS [facility] Administration Zinc Sulfate 220 mg 08/04/20 11:30 08/06/20 07:39 Zinc Sulfate 220 Mg Cap PO 220 mg DAILY QUYEN Administration Objective - Vital Signs Vital signs: Vital Signs Temp 97.7 F 08/06/20 10:01 Pulse 45 L 08/06/20 10:01 Resp 17 08/06/20 10:01 BP 107/67 08/06/20 10:01 Pulse Ox 92 L 08/06/20 10:01 Intake & Output 08/05/20 08/06/20 08/06/20 18:59 06:59 18:59 Intake Total 500 240 Balance 500 240 Intake: Intake, IV Titration 500 240 Amount Sodium Chloride 0.9% 1, 400 240 000 ml @ 20 mls/hr IV . Q24H [facility] Rx#:[id number] cefTRIAXone 1 gm In 100 Sodium Chloride 0.9% 50 ml @ 100 mls/hr IVPB Q24HR [facility] Rx#:[id number] Other: # Voids 2 - Exam GENERAL: The patient is alert and oriented x3, not in any acute distress. Well developed, well nourished. HEENT: Pupils are round and equally reacting to light. EOMI. No scleral icterus. No conjunctival pallor. Normocephalic, atraumatic. No pharyngeal erythema. No thyromegaly. CARDIOVASCULAR: S1 and S2 present. No murmurs, rubs, or gallops. -PULMONARY: Chest is clear to auscultation, no wheezing or crackles. Bilateral bronchial breathing. ABDOMEN: Soft, nontender, nondistended, normoactive bowel sounds. No palpable organomegaly. MUSCULOSKELETAL: No joint swelling or deformity. EXTREMITIES: No cyanosis, clubbing, or pedal edema. NEUROLOGICAL: Gross neurological examination did not reveal any focal deficits. SKIN: No rashes. No petechiae - Labs CBC & Chem 7: 08/06/20 06:53 08/06/20 06:53 Labs: Abnormal Lab Results - Last 24 Hours (Table) 08/06/20 08/06/20 Range/Units 06:53 06:53 Immature Gran # 0.06 H (0.00-0.04) X 10*3/uL Neutrophils # 8.06 H (1.80-7.70) X 10*3/uL Eosinophils # 0 L (0.04-0.35) X 10*3/uL BUN/Creatinine Ratio 26.25 H (12.00-20.00) Ratio Glucose 144 H (70-110) mg/dL C-Reactive Protein 4.8 H (0.0-0.8) mg/dL Microbiology - Last 24 Hours (Table) 08/04/20 09:26 Blood Culture - Preliminary Blood No Growth after 48 hours 08/04/20 09:41 Blood Culture - Preliminary Blood No Growth after 48 hours 08/05/20 12:36 Gram Stain - Preliminary Sputum Sputum Culture - Preliminary Assessment and Plan Assessment: Acute covid pneumonitis with possible bacterial superinfection Acute hypoxic respiratory failure Increase inflammatory markers Sinus bradycardia Hypothyroidism History of migraine History of constipation History of GERD Plan: This is a pleasant 50 years old male who presents with acute Covid pneumonia and acute hypoxic respiratory failure. Start the patient on vitamin C, zinc, dexamethasone. Lovenox is started and monitored d-dimer. Start ceftriaxone and Zithromax. Follow-up with a recommendation from infectious disease and pulmonary consult. Follow-up TSH and echocardiogram, cardiology consult. C ontinue with levothyroxine Labs and medication were reviewed.. Continue same treatment. Continue with symptomatic treatment. Resume home medication. Monitor lytes and vitals. DVT and GI prophylaxis. Further recommendations depends on the clinical course of the patient DVT prophylaxis: Subcutaneous Lovenox GI Prophylaxis: Ppi Prognosis is guarded
[2020-08-06 12:38] LABS: Ferritin 808.2 ng/mL (22.0-322.0)
[2020-08-06] MEDS: ALPRAZolam 0.5 MG TAB PO PRN (16:34)
--- NOTE | 2020-08-06 18:10 | ECHOF ---
Referral Reason:Rule out heart disease MEASUREMENTS -------- HEIGHT: 165.1 cm WEIGHT: 81.6 kg BP: 107/67 RVIDd: 3.4 cm (< 3.3) IVSd: 1.3 cm (0.6 - 1.1) LVIDd: 4.6 cm (3.9 - 5.3) LVPWd: 1.0 cm (0.6 - 1.1) IVSs: 1.8 cm LVIDs: 2.9 cm LVPWs: 1.7 cm LA Diam: 3.5 cm (2.7 - 3.8) LAESV Index (A-L): 26.53 ml/m Ao Diam: 3.9 cm (2.0 - 3.7) AV Cusp: 2.2 cm (1.5 - 2.6) MV EXCURSION: 17.570 mm (> 18.000) MV EF SLOPE: 141 mm/s (70 - 150) EPSS: 0.5 cm MV E Mo: 0.55 m/s MV DecT: 439 ms MV A Mo: 1.04 m/s MV E/A Ratio: 0.53 RAP: 5.00 mmHg RVSP: 22.99 mmHg FINDINGS -------- Resting bradycardia (HR<60bpm). This was a technically good study. The left ventricular size is normal. There is mild concentric left ventricular hypertrophy. Overa ll left ventricular systolic function is normal with, an EF between 60 - 65 %. The right ventricle is mildly enlarged. Normal LA size by volume 22+/-6 ml/m2. The right atrium is normal in size. Interatrial and interventricular septum intact. The aortic valve is trileaflet, and appears structurally normal. No aortic stenosis or regurgitation. There is trace mitral regurgitation. Mild tricuspid regurgitation present. Right ventricular systolic pressure is normal at < 35 mmHg. Trace/mild (physiologic) pulmonic regurgitation. The aortic root is dilated measuring 3.9cm. Normal inferior vena cava with normal inspiratory collapse consistent with estimated right atrial pre ssure of 5 mmHg. There is no pericardial effusion. CONCLUSIONS -------- 1. Resting bradycardia (HR<60bpm). 2. The left ventricular size is normal. 3. There is mild concentric left ventricular hypertrophy. 4. Overall left ventricular systolic function is normal with, an EF between 60 - 65 %. 5. The right ventricle is mildly enlarged. 6. Normal LA size by volume 22+/-6 ml/m2. 7. There is trace mitral regurgitation. 8. Mild tricuspid regurgitation present. 9. Trace/mild (physiologic) pulmonic regurgitation. 10. The aortic root is dilated measuring 3.9cm. 11. There is no pericardial effusion. SALES ADVISOR: Rosa Maria Tucker RDCS
[2020-08-06] MEDS: CITALOPRAM HYDROBROMIDE 20 MG TAB PO SCH (20:48)
[2020-08-06] MEDS: TAMSULOSIN 0.4 MG CAP.ER.24H PO SCH (20:48)
[2020-08-06] MEDS: PANTOPRAZOLE 40 MG TABLET PO SCH (20:49)
[2020-08-06] MEDS ORDERED: ALPRAZolam 1 MG TAB PO STA (20:56)
--- NOTE | 2020-08-06 23:15 | PN ---
PROGRESS NOTE DATE OF SERVICE: 08/06/2020 REASON FOR FOLLOWUP: Pneumonia. INTERVAL HISTORY: The patient is currently afebrile. The patient is breathing more comfortably. The patient denies having any chest pain, shortness of breath. He continues to have a cough with occasional sputum. No abdominal pain or diarrhea. PHYSICAL EXAMINATION: Blood pressure is 116/70 with a pulse of 43, temperature 97.5. He is 94% on 2 L nasal cannula. General description is a middle-aged male lying in bed in no distress. RESPIRATORY SYSTEM: Unlabored breathing with decreased intensity of breath sounds. No wheeze. HEART: S1, S2. Regular rate and rhythm. ABDOMEN: Soft. No tenderness. LABS: Hemoglobin is 13.9, white count of 9.63, BUN of 21, creatinine 0.8. DIAGNOSTIC IMPRESSION AND PLAN: Patient with acute COVID-19 pneumonia in this patient considered to be out of therapeutic window for remdesivir. Currently on dexamethasone, Lovenox, zinc; to continue along with respiratory support. Monitor his clinical course closely. MMODL / LESLIEN: [id number] /
--- NOTE | 2020-08-07 09:23 | P.PN ---
Subjective Progress Note Date: 08/07/20 Principal diagnosis: Acute hypoxic respiratory failure Code 19 pneumonia Secondary bacterial pneumonia Hypothyroidism Elevated d-dimer due to inflammatory process GERD 08/07/2020, patient seen eval examined during the rounds labs reviewed medications reviewed still get short of breath on activity and exertion, especially during coughing, patient remains on steroids breathing treatments and broad-spectrum antibiotics on 2 L nasal cannula, 08/06/2020, patient seen eval reexamined during the rounds labs reviewed medications reviewed care plan discussed, patient continued to have cough shortness of breath, any sputum production, discussed with primary service as well as the RN to obtain a sputum sample patient remains on broad-spectrum antibiotics, and steroids with supplemental oxygen, patient noted to have elevated d-dimer coming down, inflammatory parameters including ferritin, LDH and C-reactive protein elevated pro calcitonin is also elevated This is a 50-year-old male with prior medical history significant for hypothyroidism and GERD and chronic migraine headache she he came into the hospital with tooth the day history of increased cough shortness of breath and difficulty in breathing, patient tested positive for cold with 19 on July 26, also his diagnosed with cold with pneumonia back in July 25 he has been having mild headache all along except 2 days ago started having difficulty in breathing, spiking fever oxygen saturation is 90-93% with supplemental oxygen they do improve, patient noted to have a bilateral patchy infiltrate as well as elevated d-dimer, currently patient is resting comfortably but does get short of breath intermittently especially on activity Objective - Vital Signs Vital signs: Vital Signs Temp 98.2 F 08/07/20 05:47 Pulse 45 L 08/07/20 05:47 Resp 18 08/07/20 05:47 BP 112/71 08/07/20 05:47 Pulse Ox 95 08/07/20 05:47 Intake & Output 08/06/20 08/07/20 08/07/20 18:59 06:59 18:59 Intake Total 480 Balance 480 Intake: Oral 480 Other: Voiding Method Toilet - Exam - Constitutional General appearance: average body habitus, cooperative, disheveled - EENT Eyes: EOMI, PERRLA Ears: bilateral: normal - Neck Neck: normal ROM Carotids: bilateral: upstroke normal Thyroid: bilateral: normal size - Respiratory Respiratory: bilateral: wheezing - Cardiovascular Rhythm: regular Heart sounds: normal: S1, S2 - Gastrointestinal General gastrointestinal: normal bowel sounds, soft - Integumentary Integumentary: normal turgor - Neurologic Neurologic: CNII-XII intact - Musculoskeletal Musculoskeletal: gait normal, generalized weakness, strength equal bilaterally - Psychiatric Psychiatric: A&O x's 3, appropriate affect, intact judgment & insight - Labs CBC & Chem 7: 08/06/20 06:53 08/06/20 06:53 Labs: Abnormal Lab Results - Last 24 Hours (Table) 08/06/20 08/06/20 Range/Units 06:53 06:53 Immature Gran # 0.06 H (0.00-0.04) X 10*3/uL Neutrophils # 8.06 H (1.80-7.70) X 10*3/uL Eosinophils # 0 L (0.04-0.35) X 10*3/uL BUN/Creatinine Ratio 26.25 H (12.00-20.00) Ratio Glucose 144 H (70-110) mg/dL Ferritin 808.2 H (22.0-322.0) ng/mL C-Reactive Protein 4.8 H (0.0-0.8) mg/dL Microbiology - Last 24 Hours (Table) 08/05/20 12:36 Gram Stain - Final Sputum Sputum Culture - Final 08/04/20 09:26 Blood Culture - Preliminary Blood No Growth after 48 hours 08/04/20 09:41 Blood Culture - Preliminary Blood No Growth after 48 hours Assessment and Plan Assessment: Acute hypoxic respiratory failure Code 19 pneumonia Secondary bacterial pneumonia Hypothyroidism Elevated d-dimer due to inflammatory process GERD Plan: Continue supplemental oxygen Deep breathing exercise incentive spirometry Prone positioning Patient is not a candidate for REMdesivir as he is out of beneficial timeframe of therapy IV Decadron Sputum culture Broad-spectrum antibiotics Lovenox Further recommendations pending plan of care as per clinical response of the patient Time with Patient: Greater than 30
[2020-08-07] MEDS: CHOLECALCIFEROL 25 MCG (1000 IU) TABLET PO SCH (09:31)
[2020-08-07] MEDS: ENOXAPARIN 40 MG/0.4 ML SYRINGE SQ SCH (09:32)
[2020-08-07] MEDS: DEXAMETHASONE SOD PHOSPHATE 10 MG/ML 1 ML VIAL IV SCH (09:32)
[2020-08-07] MEDS: ZINC SULFATE 220 MG CAP PO SCH (09:32)
[2020-08-07] MEDS: DOXYCYCLINE 100 MG CAP PO SCH ×2 (09:32→20:39)
[2020-08-07] MEDS: ASCORBIC ACID 500 MG TAB PO SCH ×2 (09:32→20:39)
[2020-08-07] MEDS: ALPRAZolam 0.5 MG TAB PO PRN (12:46)
--- NOTE | 2020-08-07 13:22 | P.CRDCN ---
History of Present Illness History of present illness: HISTORY OF PRESENTING ILLNESS This is a pleasant 50-year-old male past medical history significant for hypothyroidism, GERD. 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 Patient presented to the hospital with difficulty breathing, right upper chest tightness with coughing. Productive cough with white phlem. Found to be COVID-19 positive. Patient is seen and examined and examined at bedside and, in no apparent distress. Patient does not have any complaints this morning. Prior to admission patient denies any sym ptoms of chest pain, palpitations, dizziness, lightheadedness, or syncope/pre- syncope. He currently denies any chest pain, palpitations, lightheadedness, dizziness, syncope. Patient denies any history of SC, stroke, hypertension, diabetes. Patient states he is very active at home. Denies tobacco use, alcohol use, illicit drug use. Laboratory data reviewed, sodium 134, potassium 4.9, creatinine 2.8, BUN 21, WBC 9.6, hemoglobin 13.9, platelets 226, d-dimer 0.38, TSH 2.7 Vital signs blood pressure 93/54, heart rate 50, afebrile, maintaining oxygen saturation on 1-2 L nasal cannula EKG reveals normal sinus rhythm heart rate 61. Telemetry tracings indicate sinus bradycardia.HR 50-60s. No pauses noted on telemetry. Chest xray patchy infiltrates in the middle lower aspect of the lungs bilate rallyfindings can be seen with Covid pneumonia. REVIEW OF SYSTEMS At the time of my exam: CONSTITUTIONAL: Denies fever or chills. CARDIOVASCULAR: Denies chest pain, shortness of breath, orthopnea, PND or palpitations. RESPIRATORY: Denies cough. GASTROINTESTINAL: Denies abdominal pain, diarrhea, constipation, nausea or vomiting. MUSCULOSKELETAL: Denies myalgias. NEUROLOGIC: Denies numbness, tingling, headacbe or weakness. ENDOCRINE: Denies fatigue, weight change, polydipsia or polyurina. GENITOURINARY: Denies burning, hematuria or urgency with micturation. HEMATOLOGIC: Denies history of anemia or bleeding. PHYSICAL EXAMINATION CONSTITUTIONAL: No apparent distress. HEENT: Head is normocephalic. Pupils are equal, round. Sclerae anicteric. Mucous membranes of the mouth are moist. No JVD. No carotid bruit. CHEST EXAMINATION: Lungs are clear to auscultation. No chest wall tenderness is noted on palpation or with deep breathing. HEART EXAMINATION: Regular rate and rhythm. S1, S2 heard. No murmurs, gallops or rub. ABDOMEN: Soft, nontender. Positive bowel sounds. EXTREMITIES: 2+ peripheral pulses, no lower extremity edema and no calf tenderness. NEUROLOGIC EXAMINATION: Patient is awake, alert and oriented x3. ASSESSMENT -Covid-19 infection -Sinus bradycardia- patient is asymptomatic PLAN -Patient has been in sinus bradycardia, HR trend over the past 24hrs has been 50-60s, no pauses noted on telemetry. Patient is stable and is asymptomatic. We will sign off at this time, no further cardiac workup needed. Please reach out for further questions or concerns. Nurse Practitioner note has been reviewed, I agree with a documented findings an d plan of care. Patient was seen and examined. Past Medical History Past Medical History: GERD/Reflux, Thyroid Disorder Additional Past Medical History / Comment(s): hx migraine, constipation, bloating and change in stool, History of Any Multi-Drug Resistant Organisms: None Reported Past Surgical History: Appendectomy, Orthopedic Surgery, Tonsillectomy Additional Past Surgical History / Comment(s): left knee arthroscopy x 2, left arm tendon repair Past Anesthesia/Blood Transfusion Reactions: No Reported Reaction Past Psychological History: No Psychological Hx Reported Smoking Status: Never smoker Past Alcohol Use History: Rare Past Drug Use History: None Reported - Past Family History Mother Family Medical History: No Reported History Medications and Allergies Home Medications Medication Instructions Recorded Confirmed Type Levothyroxine Sodium [Synthroid] 50 mcg PO DAILY 08/05/14 08/04/20 History Pantoprazole Sodium [Protonix] 40 mg PO HS 08/05/14 08/04/20 History ALPRAZolam [Xanax] 0.5 mg PO BID PRN 08/04/20 08/04/20 History Acetaminophen Tab [Tylenol Tab] 1,000 mg PO Q6H PRN 08/04/20 08/04/20 History Citalopram Hydrobromide [CeleXA] 20 mg PO HS 08/04/20 08/04/20 History Tamsulosin HCl [Flomax] 0.8 mg PO HS 08/04/20 08/04/20 History Allergies Allergy/AdvReac Type Severity Reaction Status Date / Time No Known Allergies Allergy Verified 08/04/20 10:47 Physical Exam Vitals: Vital Signs Temp Pulse Resp BP Pulse Ox 08/07/20 09:58 97.4 F L 48 L 16 93/54 91 L 08/07/20 05:47 98.2 F 45 L 18 112/71 95 08/07/20 02:00 98.1 F 39 L 18 122/71 97 08/06/20 21:21 97.5 F L 43 L 18 116/70 94 L 08/06/20 20:00 18 08/06/20 18:12 97.8 F 50 L 18 94/59 92 L 08/06/20 13:53 98.4 F 54 L 17 105/57 95 08/06/20 10:01 97.7 F 45 L 17 107/67 92 L Intake and Output 08/06/20 08/07/20 08/07/20 22:59 06:59 14:59 Intake Total 480 Balance 480 Intake: Oral 480 Other: Voiding Method Toilet Results 08/06/20 06:53 08/06/20 06:53 CBC 08/06/20 Range/Units 06:53 WBC 9.63 (4.50-10.00) X 10*3/uL RBC 4.56 (4.40-5.60) X 10*6/uL Hgb 13.9 (13.0-17.0) g/dL Hct 40.8 (39.6-50.0) % Plt Count 226 (140-440) X 10*3/uL Comprehensive Metabolic Panel 08/06/20 Range/Units 06:53 Sodium 139 (135-145) mmol/L Potassium 4.9 (3.5-5.5) mmol/L Chloride 103 (96-109) mmol/L Carbon Dioxide 29.0 (21.6-31.8) mmol/L BUN 21.0 (9.0-27.0) mg/dL Creatinine 0.8 (0.6-1.5) mg/dL Glucose 144 H (70-110) mg/dL Calcium 9.0 (8.7-10.3) mg/dL Current Medications Generic Name Dose Route Start Last Admin Trade Name Freq PRN Reason Stop Dose Admin Acetaminophen 1,000 mg 08/04/20 13:05 08/04/20 18:09 Acetaminophen Tab 500 Mg Tab PO 1,000 mg Q6H PRN Administration Fever Alprazolam 0.5 mg 08/04/20 13:05 08/06/20 16:34 Alprazolam 0.5 Mg Tab PO 0.5 mg BID PRN Administration Anxiety Ascorbic Acid 500 mg 08/04/20 11:30 08/07/20 09:32 Ascorbic Acid 500 Mg Tab PO 500 mg BID QUYEN Administration Benzocaine/Menthol 1 each 08/04/20 18:42 08/05/20 21:59 Benzocaine/Menthol Lozeng 1 Each Lozenge MUCOUS MEM 1 each Q4HR PRN Administration Sore Throat Cholecalciferol 125 mcg 08/04/20 11:30 08/07/20 09:31 Cholecalciferol 25 Mcg (1000 Iu) Tablet PO 125 mcg DAILY QUYEN Administration Citalopram Hydrobromide 20 mg 08/04/20 21:00 08/06/20 20:48 Citalopram Hydrobromide 20 Mg Tab PO 20 mg HS QUYEN Administration Dexamethasone Sodium Phosphate 6 mg 08/04/20 11:30 08/07/20 09:32 Dexamethasone Sod Phosphate 10 Mg/Ml 1 Ml Vial IV 6 mg DAILY QUYEN Administration Doxycycline Monohydrate 100 mg 08/05/20 09:00 08/07/20 09:32 Doxycycline 100 Mg Cap PO 100 mg BID QUYEN Administration Enoxaparin Sodium 40 mg 08/04/20 11:30 08/07/20 09:32 Enoxaparin 40 Mg/0.4 Ml Syringe SQ 40 mg DAILY QUYEN Administration Sodium Chloride 1,000 mls @ 20 mls/hr 08/04/20 11:30 08/06/20 06:20 Saline 0.9% IV 20 mls/hr .Q24H QUYEN Administration Ceftriaxone Sodium 1 gm/ 50 mls @ 100 mls/hr 08/05/20 09:00 08/07/20 09:31 Sodium Chloride IVPB 100 mls/hr Q24HR QUYEN Administration Levothyroxine Sodium 50 mcg 08/05/20 06:30 08/06/20 07:37 Levothyroxine 50 Mcg Tab PO Not Given 0630 QUYEN Naloxone HCl 0.2 mg 08/04/20 11:27 Naloxone 0.4 Mg/Ml 1 Ml Vial IV Q2M PRN Opioid Reversal Pantoprazole Sodium 40 mg 08/04/20 21:00 08/06/20 20:49 Pantoprazole 40 Mg Tablet PO 40 mg HS QUYEN Administration Tamsulosin HCl 0.8 mg 08/04/20 21:00 08/06/20 20:48 Tamsulosin 0.4 Mg Cap.Er.24h PO 0.8 mg HS QUYEN Administration Zinc Sulfate 220 mg 08/04/20 11:30 08/07/20 09:32 Zinc Sulfate 220 Mg Cap PO 220 mg DAILY QUYEN Administration Intake and Output 08/06/20 08/07/20 08/07/20 22:59 06:59 14:59 Intake Total 480 Balance 480 Intake: Oral 480 Other: Voiding Method Toilet 08/06/20 06:53 08/06/20 06:53
[2020-08-07] MEDS: SODIUM CHLORIDE 0.9% 1,000 ML IV SCH (17:39)
--- NOTE | 2020-08-07 18:11 | P.PN ---
Subjective Progress Note Date: 08/07/20 50 years old male with past medical history of GERD, hypothyroidism, constipation, migraine. Patient presents because of breathing difficulty and chest discomfort He was tested positive for frias virus on 07/26 his works at [employer] was tested positive for Covid on July 25, he had some chest tightness and coughing on 07/26 so he went and tested for coronavirus, he has little white phlegm as well but 6 days ago he started having shortness of breath which made him very suspicious having the first infection, not patient has been tested every 2 weeks negative for coronavirus distal 07/26 because he works at [employer]. He has right upper chest pain with coughing only. No diarrhea. No ab dominal pain or nausea vomiting. No weakness or headache. He denies smoking, alcohol or illicit drugs. On admission he is febrile at 101.3. He is saturating 93% on room air and 97% and 2-3 L oxygen nasal cannula. His respiratory rate of 22 breaths per minute CBC, BMP and liver enzymes are unremarkable. D-dimer is slightly elevated at 0.63. Lactate dehydrogenase is elevated at 1179 and C-reactive protein at 166. EKG showing normal sinus rhythm at [address]-T changes. Chest x-ray: Showing patchy infiltrates in the mid and lower aspects of the lungs bilaterally. Findings are consistent with covid pneumonia In the emergency room patient was started on Lovenox, vitamin C and Objective - Vital Signs Vital signs: Vital Signs Temp 97.4 F L 08/07/20 09:58 Pulse 48 L 08/07/20 09:58 Resp 16 08/07/20 09:58 BP 93/54 08/07/20 09:58 Pulse Ox 91 L 08/07/20 09:58 Intake & Output 08/06/20 08/07/20 08/07/20 18:59 06:59 18:59 Intake Total 480 Balance 480 Intake: Oral 480 Other: Voiding Method Toilet - Exam GENERAL: The patient is alert and oriented x3, not in any acute distress. Well developed, well nourished. HEENT: Pupils are round and equally reacting to light. EOMI. No scleral icterus. No conjunctival pallor. Normocephalic, atraumatic. No pharyngeal erythema. No thyromegaly. CARDIOVASCULAR: S1 and S2 present. No murmurs, rubs, or gallops. -PULMONARY: Chest is clear to auscultation, no wheezing or crackles. Bilateral bronchial breathing. ABDOMEN: Soft, nontender, nondistended, normoactive bowel sounds. No palpable organomegaly. MUSCULOSKELETAL: No joint swelling or deformity. EXTREMITIES: No cyanosis, clubbing, or pedal edema. NEUROLOGICAL: Gross neurological examination did not reveal any focal deficits. SKIN: No rashes. No petechiae - Labs CBC & Chem 7: 08/06/20 06:53 08/06/20 06:53 Labs: Abnormal Lab Results - Last 24 Hours (Table) 08/06/20 08/06/20 Range/Units 06:53 06:53 Immature Gran # 0.06 H (0.00-0.04) X 10*3/uL Neutrophils # 8.06 H (1.80-7.70) X 10*3/uL Eosinophils # 0 L (0.04-0.35) X 10*3/uL BUN/Creatinine Ratio 26.25 H (12.00-20.00) Ratio Glucose 144 H (70-110) mg/dL Ferritin 808.2 H (22.0-322.0) ng/mL C-Reactive Protein 4.8 H (0.0-0.8) mg/dL Microbiology - Last 24 Hours (Table) 08/05/20 12:36 Gram Stain - Final Sputum Sputum Culture - Final 08/04/20 09:26 Blood Culture - Preliminary Blood No Growth after 48 hours 08/04/20 09:41 Blood Culture - Preliminary Blood No Growth after 48 hours Assessment and Plan Assessment: Acute covid pneumonitis with possible bacterial superinfection Acute hypoxic respiratory failure Increase inflammatory markers Sinus bradycardia Hypothyroidism History of migraine History of constipation History of GERD Plan: This is a pleasant 50 years old male who presents with acute Covid pneumonia and acute hypoxic respiratory failure. Start the patient on vitamin C, zinc, dexamethasone. Lovenox is started and monitored d-dimer. Start ceftriaxone and Zithromax. Follow-up with a recommendation from infectious disease and pulmonary consult. Follow-up TSH and echocardiogram, cardiology consult. Continue with levothyroxine Labs and medication were reviewed.. Continue same treatment. Continue with symptomatic treatment. Resume home medication. Monitor lytes and vitals. DVT and GI prophylaxis. Further recommendations depends on the clinical course of the patient DVT prophylaxis: Subcutaneous Lovenox GI Prophylaxis: Ppi Prognosis is guarded
--- NOTE | 2020-08-07 19:24 | PN ---
PROGRESS NOTE DATE OF SERVICE: 08/07/2020 REASON FOR FOLLOWUP: COVID-19 pneumonia. INTERVAL HISTORY: The patient is currently afebrile. The patient is breathing slightly comfortably. The patient denies having any chest pain. Continues to have a cough with occasional sputum. No hemoptysis. No nausea, no vomiting, no abdominal pain or diarrhea. PHYSICAL EXAMINATION: Blood pressure 103/66, pulse of 57, temperature 99.4. He is 96% on 2 L nasal cannula. General description is a middle-aged male lying in bed in no distress. RESPIRATORY SYSTEM: Unlabored breathing with decreased intensity of breath sounds. No wheeze. HEART: S1, S2. Regular rate and rhythm. ABDOMEN: Soft. No tenderness. LABS: TSH is 2.7. Blood and sputum cultures are so far negative. DIAGNOSTIC IMPRESSION AND PLAN: Patient with acute COVID-19 infection in this patient currently clinically responding to the dexamethasone, Lovenox, zinc; to continue along with respiratory support, and monitor his clinical course closely. MMODL / IJN: [id number] /
[2020-08-07] MEDS: TAMSULOSIN 0.4 MG CAP.ER.24H PO SCH (20:39)
[2020-08-07] MEDS: PANTOPRAZOLE 40 MG TABLET PO SCH (20:40)
[2020-08-07] MEDS: CITALOPRAM HYDROBROMIDE 20 MG TAB PO SCH (20:40)
[2020-08-08] MEDS: CHOLECALCIFEROL 25 MCG (1000 IU) TABLET PO SCH (09:01)
[2020-08-08] MEDS: DOXYCYCLINE 100 MG CAP PO SCH ×2 (09:01→20:35)
[2020-08-08] MEDS: ENOXAPARIN 40 MG/0.4 ML SYRINGE SQ SCH (09:01)
[2020-08-08] MEDS: DEXAMETHASONE SOD PHOSPHATE 10 MG/ML 1 ML VIAL IV SCH (09:02)
[2020-08-08] MEDS: ZINC SULFATE 220 MG CAP PO SCH (09:02)
[2020-08-08] MEDS: ASCORBIC ACID 500 MG TAB PO SCH ×2 (09:02→20:35)
[2020-08-08] MEDS: LEVOTHYROXINE 50 MCG TAB PO SCH (09:03)
--- NOTE | 2020-08-08 10:53 | P.PN ---
Subjective Progress Note Date: 08/08/20 Principal diagnosis: Acute hypoxic respiratory failure Code 19 pneumonia Secondary bacterial pneumonia Hypothyroidism Elevated d-dimer due to inflammatory process GERD 08/08/2020, patient seen eval examined during the rounds labs reviewed medications reviewed care plan discussed, is still short of breath on activity and exertion says stop down to 84 to 88%, wheezing have improved, remains on full therapy for covert 19 pneumonia 08/07/2020, patient seen eval examined during the rounds labs reviewed medications reviewed still get short of breath on activity and exertion, especially during coughing, patient remains on steroids breathing treatments and broad-spectrum antibiotics on 2 L nasal cannula, 08/06/2020, patient seen eval reexamined during the rounds labs reviewed medications reviewed care plan discussed, patient continued to have cough shortness of breath, any sputum production, discussed with primary service as well as the RN to obtain a sputum sample patient remains on broad-spectrum antibiotics, and steroids with supplemental oxygen, patient noted to have elevated d-dimer coming down, inflammatory parameters including ferritin, LDH and C-reactive protein elevated pro calcitonin is also elevated This is a 50-year-old male with prior medical history significant for hypothyroidism and GERD and chronic migraine headache she he came into the [facility] with tooth the day history of increased cough shortness of breath and difficulty in breathing, patient tested positive for cold with 19 on July 26, also his diagnosed with cold with pneumonia back in July 25 he has been having mild headache all along except 2 days ago started having difficulty in breathing, spiking fever oxygen saturation is 90-93% with supplemental oxygen they do improve, patient noted to have a bilateral patchy infiltrate as well as elevated d-dimer, currently patient is resting comfortably but does get short of breath intermittently especially on activity Objective - Vital Signs Vital signs: Vital Signs Temp 96.9 F L 08/08/20 10:16 Pulse 76 08/08/20 10:16 Resp 20 08/08/20 10:16 BP 126/85 08/08/20 10:16 Pulse Ox 92 L 08/08/20 10:16 Intake & Output 08/07/20 08/08/20 08/08/20 18:59 06:59 18:59 Intake Total 400 300 Output Total 550 Balance 400 -550 300 Intake: Intake, IV Titration 400 Amount Sodium Chloride 0.9% 1, 300 000 ml @ 20 mls/hr IV . Q24H QUYEN Rx#:[id number] cefTRIAXone 1 gm In 100 Sodium Chloride 0.9% 50 ml @ 100 mls/hr IVPB Q24HR [facility] Rx#:[id number] Oral 300 Output: Urine 550 Other: Voiding Method Toilet # Voids 2 1 - Exam - Constitutional General appearance: average body habitus, cooperative, disheveled - EENT Eyes: EOMI, PERRLA Ears: bilateral: normal - Neck Neck: normal ROM Carotids: bilateral: upstroke normal Thyroid: bilateral: normal size - Respiratory Respiratory: bilateral: wheezing - Cardiovascular Rhythm: regular Heart sounds: normal: S1, S2 - Gastrointestinal General gastrointestinal: normal bowel sounds, soft - Integumentary Integumentary: normal turgor - Neurologic Neurologic: CNII-XII intact - Musculoskeletal Musculoskeletal: gait normal, generalized weakness, strength equal bilaterally - Psychiatric Psychiatric: A&O x's 3, appropriate affect, intact judgment & insight - Labs CBC & Chem 7: 08/06/20 06:53 08/06/20 06:53 Labs: Microbiology - Last 24 Hours (Table) 08/04/20 09:26 Blood Culture - Preliminary Blood No Growth after 72 hours 08/04/20 09:41 Blood Culture - Preliminary Blood No Growth after 72 hours Assessment and Plan Assessment: Acute hypoxic respiratory failure Code 19 pneumonia Secondary bacterial pneumonia Hypothyroidism Elevated d-dimer due to inflammatory process GERD Plan: Continue supplemental oxygen Deep breathing exercise incentive spirometry Prone positioning Patient is not a candidate for REMdesivir as he is out of beneficial timeframe of therapy IV Decadron Sputum culture Broad-spectrum antibiotics Lovenox Further recommendations pending plan of care as per clinical response of the patient Time with Patient: Greater than 30
[2020-08-08] MEDS: SODIUM CHLORIDE 0.9% 1,000 ML IV SCH (11:41)
[2020-08-08 16:33] LABS: LD Isoenzymes 1 16 % (19-38); LD Isoenzymes 2 35 % (30-43); LD Isoenzymes 3 29 % (16-26); LD Isoenzymes 4 12 % (3-12); LD Isoenzymes 5 8 % (3-14); Lactacte Dehydrogenase(LD) ISO 361 U/L (120-250)
--- NOTE | 2020-08-08 16:38 | P.PN ---
Subjective Progress Note Date: 08/08/20 Principal diagnosis: Covert 19 with pneumonia Secondary bacterial pneumonia Elevated d-dimer 50 years old male with past medical history of GERD, hypothyroidism, constipation, migraine. Patient presents because of breathing difficulty and chest discomfort He was tested positive for frias virus on 07/26 his works at [employer] was tested positive for Covid on July 25, he had some chest tightness and coughing on 07/26 so he went and tested for coronavirus, he has little white phlegm as well but 6 days ago he started having shortness of breath which made him very suspicious having the first infection, not patient has been tested every 2 weeks negative for coronavirus distal 07/26 because he works at [employer]. He has right upper chest pain with coughing only. No diarrhea. No abdominal pain or nausea vomiting. No weakness or headache. He denies smoking, alcohol or illicit drugs. On admission he is febrile at 101.3. He is saturating 93% on room air and 97% and 2-3 L oxygen nasal cannula. His respiratory rate of 22 breaths per minute CBC, BMP and liver enzymes are unremarkable. D-dimer is slightly elevated at 0.63. Lactate dehydrogenase is elevated at 1179 and C-reactive protein at 166. EKG showing normal sinus rhythm at [address]-T changes. Chest x-ray: Showing patchy infiltrates in the mid and lower aspects of the lungs bila terally. Findings are consistent with covid pneumonia In the emergency room patient was started on Lovenox, vitamin C and 08/08/2020 Patient is seen and evaluated this resting comfortably in bed; reports marked shortness of breath with minimal activity at which time O2 saturation dropped down to 84-88% Vital signs remained stable with a temperature of 96.9, pulse 76, respiration 20 and blood pressure 126/85 Pulmonary service on board and recommending to continue with supplemental oxygen as needed with deep breathing exercises/intensive spirometry; remains on Decadron broad-spectrum antibiotics; subcu Lovenox for anticoagulation Objective - Vital Signs Vital signs: Vital Signs Temp 96.9 F L 08/08/20 10:16 Pulse 76 08/08/20 10:16 Resp 20 08/08/20 10:16 BP 126/85 08/08/20 10:16 Pulse Ox 92 L 08/08/20 10:16 Intake & Output 08/07/20 08/08/2021 18:59 06:59 18:59 Intake Total 400 300 Output Total 550 Balance 400 -550 300 Intake: Intake, IV Titration 400 Amount Sodium Chloride 0.9% 1, 300 000 ml @ 20 mls/hr IV . Q24H QUYEN Rx#:[id number] cefTRIAXone 1 gm In 100 Sodium Chloride 0.9% 50 ml @ 100 mls/hr IVPB Q24HR QUYEN Rx#:[id number] Oral 300 Output: Urine 550 Other: Voiding Method Toilet # Voids 2 1 - Exam GENERAL: The patient is alert and oriented x3, not in any acute distress. Well developed, well nourished. HEENT: Pupils are round and equally reacting to light. EOMI. No scleral icterus. No conjunctival pallor. Normocephalic, atraumatic. No pharyngeal erythema. No thyromegaly. CARDIOVASCULAR: S1 and S2 present. No murmurs, rubs, or gallops. -PULMONARY: Chest is clear to auscultation, no wheezing or crackles. Bilateral bronchial breathing. ABDOMEN: Soft, nontender, nondistended, normoactive bowel sounds. No palpable organomegaly. MUSCULOSKELETAL: No joint swelling or deformity. EXTREMITIES: No cyanosis, clubbing, or pedal edema. NEUROLOGICAL: Gross neurological examination did not reveal any focal deficits. SKIN: No rashes. No petechiae - Labs CBC & Chem 7: 08/06/20 06:53 08/06/20 06:53 Labs: Microbiology - Last 24 Hours (Table) 08/04/20 09:26 Blood Culture - Preliminary Blood No Growth after 72 hours 08/04/20 09:41 Blood Culture - Preliminary Blood No Growth after 72 hours Assessment and Plan Assessment: Acute covid pneumonitis with possible bacterial superinfection Acute hypoxic respiratory failure Increase inflammatory markers Sinus bradycardia Hypothyroidism History of migraine History of constipation History of GERD Plan: This is a pleasant 50 years old male who presents with acute Covid pneumonia and acute hypoxic respiratory failure. Start the patient on vitamin C, zinc, dexamethasone. Lovenox is started and monitored d-dimer. Start ceftriaxone and Zithromax. Follow-up with a recommendation from infectious disease and pulmonary consult. Follow-up TSH and echocardiogram, cardiology consult. Continue with levothyroxine Labs and medication were reviewed.. Continue same treatment. Continue with symptomatic treatment. Resume home medication. Monitor lytes and vitals. DVT and GI prophylaxis. Further recommendations depends on the clinical course of the patient DVT prophylaxis: Subcutaneous Lovenox GI Prophylaxis: Ppi Prognosis is guarded
--- NOTE | 2020-08-08 16:53 | PN ---
PROGRESS NOTE DATE OF SERVICE: 08/08/2020 REASON FOR FOLLOWUP: COVID pneumonia. INTERVAL HISTORY: The patient is currently afebrile. Patient is breathing slightly comfortably. The patient denies having any chest pain. He does have a cough and is bringing up some sputum. No hemoptysis. No nausea, no vomiting. No abdominal pain. No diarrhea. PHYSICAL EXAMINATION: Blood pressure is 96/57 with a pulse of 50, temperature of 97.6. He is 93% on 2 L nasal cannula. GENERAL DESCRIPTION: An middle-aged male lying in bed in no distress. RESPIRATORY SYSTEM: Unlabored breathing, decreased intensity of breath sounds, no wheeze. HEART: S1, S2. Regular rate and rhythm. ABDOMEN: Soft, no tenderness. LABS: No new labs have been obtained today. IMPRESSION/PLAN: Patient with acute COVID-19 infection in this patient currently being managed with dexamethasone, Lovenox, zinc and initial antibiotic because of elevated procalcitonin. The patient showing clinical response. Continue current treatment protocol and monitor clinical course closely. MMODL / IJN: [id number] /
[2020-08-08] MEDS: CITALOPRAM HYDROBROMIDE 20 MG TAB PO SCH (20:35)
[2020-08-08] MEDS: TAMSULOSIN 0.4 MG CAP.ER.24H PO SCH (20:36)
[2020-08-08] MEDS: PANTOPRAZOLE 40 MG TABLET PO SCH (20:36)
[2020-08-09] MEDS: LEVOTHYROXINE 50 MCG TAB PO SCH (05:35)
[2020-08-09] MEDS: CHOLECALCIFEROL 25 MCG (1000 IU) TABLET PO SCH (09:46)
[2020-08-09] MEDS: ZINC SULFATE 220 MG CAP PO SCH (09:46)
[2020-08-09] MEDS: ENOXAPARIN 40 MG/0.4 ML SYRINGE SQ SCH (09:46)
[2020-08-09] MEDS: ASCORBIC ACID 500 MG TAB PO SCH ×2 (09:46→20:40)
[2020-08-09] MEDS: DEXAMETHASONE SOD PHOSPHATE 10 MG/ML 1 ML VIAL IV SCH (09:46)
[2020-08-09] MEDS: DOXYCYCLINE 100 MG CAP PO SCH ×2 (09:47→20:40)
--- NOTE | 2020-08-09 15:59 | P.PN ---
Subjective Progress Note Date: 08/09/20 Principal diagnosis: Covert 19 with pneumonia Secondary bacterial pneumonia Elevated d-dimer 50 years old male with past medical history of GERD, hypothyroidism, constipation, migraine. Patient presents because of breathing difficulty and chest discomfort He was tested positive for frias virus on 07/26 his works at [employer] was tested positive for Covid on July 25, he had some chest tightness and coughing on 07/26 so he went and tested for coronavirus, he has little white phlegm as well but 6 days ago he started having shortness of breath which made him very suspicious having the first infection, not patient has been tested every 2 weeks negative for coronavirus distal 07/26 because he works at [employer]. He has right upper chest pain with coughing only. No diarrhea. No abdominal pain or nausea vomiting. No weakness or headache. He denies smoking, alcohol or illicit drugs. On admission he is febrile at 101.3. He is saturating 93% on room air and 97% and 2-3 L oxygen nasal cannula. His respiratory rate of 22 breaths per minute CBC, BMP and liver enzymes are unremarkable. D-dimer is slightly elevated at 0.63. Lactate dehydrogenase is elevated at 1179 and C-reactive protein at 166. EKG showing normal sinus rhythm at [address]-T changes. Chest x-ray: Showing patchy infiltrates in the mid and lower aspects of the lungs bila terally. Findings are consistent with covid pneumonia In the emergency room patient was started on Lovenox, vitamin C and 08/08/2020 Patient is seen and evaluated this resting comfortably in bed; reports marked shortness of breath with minimal activity at which time O2 saturation dropped down to 84-88% Vital signs remained stable with a temperature of 96.9, pulse 76, respiration 20 and blood pressure 126/85 Pulmonary service on board and recommending to continue with supplemental oxygen as needed with deep breathing exercises/intensive spirometry; remains on Decadron broad-spectrum antibiotics; subcu Lovenox for anticoagulation 08/09/2020 Patient is seen resting comfortably in bed; discussed with RN in great detail; continues to desaturated down to 80-84% on minimal activity; remains on 2 L of oxygen per nasal cannula Labs are reviewed and reveal a stable CBC, sodium 139, potassium 4.9. Normal renal function Pulmonary service on board and recommending to continue with supplemental oxygen as needed with deep breathing exercises/intensive spirometry; remains on Decadron broad-spectrum antibiotics; subcu Lovenox for anticoagulation Patient discussed with social work and patient will need to discharge home on home O2 once cleared for discharge by pulmonary Objective - Vital Signs Vital signs: Vital Signs Temp 98.1 F 08/09/20 09:43 Pulse 91 08/09/20 09:43 Resp 18 08/09/20 09:43 BP 99/62 08/09/20 09:43 Pulse Ox 90 L 08/09/20 09:43 Intake & Output 08/08/20 08/09/20 08/09/20 18:59 06:59 18:59 Intake Total 1100 400 Balance 1100 400 Intake: Oral 1100 400 Other: Voiding Method Toilet # Voids 1 2 - Exam GENERAL: The patient is alert and oriented x3, not in any acute distress. Well developed, well nourished. HEENT: Pupils are round and equally reacting to light. EOMI. No scleral icterus. No conjunctival pallor. Normocephalic, atraumatic. No pharyngeal erythema. No thyromegaly. CARDIOVASCULAR: S1 and S2 present. No murmurs, rubs, or gallops. -PULMONARY: Chest is clear to auscultation, no wheezing or crackles. Bilateral bronchial breathing. ABDOMEN: Soft, nontender, nondistended, normoactive bowel sounds. No palpable organomegaly. MUSCULOSKELETAL: No joint swelling or deformity. EXTREMITIES: No cyanosis, clubbing, or pedal edema. NEUROLOGICAL: Gross neurological examination did not reveal any focal deficits. SKIN: No rashes. No petechiae - Labs CBC & Chem 7: 08/06/20 06:53 08/06/20 06:53 Labs: Abnormal Lab Results - Last 24 Hours (Table) 08/06/20 Range/Units 06:53 LD Isoenzymes 361 H (120-250) U/L LD 1 16 L (19-38) % LD 3 29 H (16-26) % Microbiology - Last 24 Hours (Table) 08/04/20 09:41 Blood Culture - Preliminary Blood No Growth after 96 hours 08/04/20 09:26 Blood Culture - Preliminary Blood No Growth after 96 hours Assessment and Plan Assessment: Acute covid pneumonitis with possible bacterial superinfection Acute hypoxic respiratory failure Increase inflammatory markers Sinus bradycardia Hypothyroidism History of migraine History of constipation History of GERD Plan: This is a pleasant 50 years old male who presents with acute Covid pneumonia and acute hypoxic respiratory failure. Start the patient on vitamin C, zinc, dexamethasone. Lovenox is started and monitored d-dimer. Start ceftriaxone and Zithromax. Follow-up with a recommendation from infectious disease and pulmonary consult. Follow-up TSH and echocardiogram, cardiology consult. Continue with levothyroxine Labs and medication were reviewed.. Continue same treatment. Continue with symptomatic treatment. Resume home medication. Monitor lytes and vitals. DVT and GI prophylaxis. Further recommendations depends on the clinical course of t he patient DVT prophylaxis: Subcutaneous Lovenox GI Prophylaxis: Ppi Prognosis is guarded
[2020-08-09] MEDS: SODIUM CHLORIDE 0.9% 1,000 ML IV SCH (17:31)
--- NOTE | 2020-08-09 19:58 | P.PN ---
Subjective Progress Note Date: 08/09/20 Principal diagnosis: Acute hypoxic respiratory failure Code 19 pneumonia Secondary bacterial pneumonia Hypothyroidism Elevated d-dimer due to inflammatory process GERD 08/09/2020, patient seen eval examined during the rounds labs reviewed medications reviewed care plan discussed, respiratory status remains stable on supplemental oxygen however room air on activity and exertion does drop down into mid 80s hemodynamically otherwise stable cough congestion slightly better 08/08/2020, patient seen eval examined during the rounds labs reviewed medications reviewed care plan discussed, is still short of breath on activity and exertion says stop down to 84 to 88%, wheezing have improved, remains on full therapy for covert 19 pneumonia 08/07/2020, patient seen eval examined during the rounds labs reviewed medications reviewed still get short of breath on activity and exertion, especially during coughing, patient remains on steroids breathing treatments and broad-spectrum antibiotics on 2 L nasal cannula, 08/06/2020, patient seen eval reexamined during the rounds labs reviewed medications reviewed care plan discussed, patient continued to have cough shortness of breath, any sputum production, discussed with primary service as well as the RN to obtain a sputum sample patient remains on broad-spectrum antibiotics, and steroids with supplemental oxygen, patient noted to have elevated d-dimer coming down, inflammatory parameters including ferritin, LDH and C-reactive protein elevated pro calcitonin is also elevated This is a 50-year-old male with prior medical history significant for hypothyroidism and GERD and chronic migraine headache she he came into the hospital with tooth the day history of increased cough shortness of breath and difficulty in breathing, patient tested positive for cold with 19 on July 26, also his diagnosed with cold with pneumonia back in July 25 he has been having mild headache all along except 2 days ago started having difficulty in breathing, spiking fever oxygen saturation is 90-93% with supplemental oxygen they do improve, patient noted to have a bilateral patchy infiltrate as well as elevated d-dimer, currently patient is resting comfortably but does get short of breath intermittently especially on activity Objective - Vital Signs Vital signs: Vital Signs Temp 97.0 F L 08/09/20 18:23 Pulse 58 L 08/09/20 18:23 Resp 18 08/09/20 18:23 BP 90/57 08/09/20 18:23 Pulse Ox 93 L 08/09/20 18:23 Intake & Output 08/09/20 08/09/20 08/10/20 06:59 18:59 06:59 Intake Total 1200 Balance 1200 Intake: Oral 1200 Other: Voiding Method Toilet # Voids 2 1 - Exam - Constitutional General appearance: average body habitus, cooperative, disheveled - EENT Eyes: EOMI, PERRLA Ears: bilateral: normal - Neck Neck: normal ROM Carotids: bilateral: upstroke normal Thyroid: bilateral: normal size - Respiratory Respiratory: bilateral: wheezing - Cardiovascular Rhythm: regular Heart sounds: normal: S1, S2 - Gastrointestinal General gastrointestinal: normal bowel sounds, soft - Integumentary Integumentary: normal turgor - Neurologic Neurologic: CNII-XII intact - Musculoskeletal Musculoskeletal: gait normal, generalized weakness, strength equal bilaterally - Psychiatric Psychiatric: A&O x's 3, appropriate affect, intact judgment & insight - Labs CBC & Chem 7: 08/06/20 06:53 08/06/20 06:53 Labs: Microbiology - Last 24 Hours (Table) 08/04/20 09:41 Blood Culture - Preliminary Blood No Growth after 120 hours 08/04/20 09:26 Blood Culture - Preliminary Blood No Growth after 120 hours Assessment and Plan Assessment: Acute hypoxic respiratory failure Code 19 pneumonia Secondary bacterial pneumonia Hypothyroidism Elevated d-dimer due to inflammatory process GERD Plan: Continue supplemental oxygen Deep breathing exercise incentive spirometry Prone positioning Patient is not a candidate for REMdesivir as he is out of beneficial timeframe of therapy IV Decadron Sputum culture Broad-spectrum antibiotics Lovenox Further recommendations pending plan of care as per clinical response of the patient Time with Patient: Greater than 30
[2020-08-09] MEDS: PANTOPRAZOLE 40 MG TABLET PO SCH (20:40)
[2020-08-09] MEDS: TAMSULOSIN 0.4 MG CAP.ER.24H PO SCH (20:40)
[2020-08-09] MEDS: CITALOPRAM HYDROBROMIDE 20 MG TAB PO SCH (20:41)
[2020-08-09] MEDS: BENZOCAINE/MENTHOL LOZENG 1 EACH LOZENGE MUCOUS MEM PRN (20:56)
--- NOTE | 2020-08-09 23:35 | PN ---
PROGRESS NOTE DATE OF SERVICE: 08/09/2020 REASON FOR FOLLOWUP: Covid 19 infection and pneumonia. INTERVAL HISTORY: The patient is currently afebrile. The patient is breathing more comfortably. Patient denies any chest pain. Did have a cough but less sputum production. No nausea, no vomiting. No abdominal pain. No diarrhea. PHYSICAL EXAMINATION: Blood pressure 98/57, pulse of 88, temperature 97. He is 93% on room air. General description: The patient is a middle-aged male lying in bed in no distress. Respiratory system: Unlabored breathing, decreased intensity of breath sounds. No wheeze. HEART: S1, S2. Regular rate and rhythm. ABDOMEN: Soft, no tenderness. LABS: No new labs have been obtained today. DIAGNOSTIC IMPRESSION AND PLAN: Patient with acute COVID-19 infection and concern for possible secondary bacterial pneumonia in the patient overall improvement. Currently on dexamethasone Lovenox, zinc, and empiric antibiotic to continue. Transition to a short course of oral steroids and Ceftin on discharge. Continue supportive care. MMODL / IJN: [id number] /
[2020-08-10] MEDS: LEVOTHYROXINE 50 MCG TAB PO SCH (05:25)
[2020-08-10 06:51] LABS: Glucose,Whole Blood 90 mg/dL (75-99)
[2020-08-10] MEDS: ENOXAPARIN 40 MG/0.4 ML SYRINGE SQ SCH (08:17)
[2020-08-10] MEDS: CHOLECALCIFEROL 25 MCG (1000 IU) TABLET PO SCH (08:18)
[2020-08-10] MEDS: DOXYCYCLINE 100 MG CAP PO SCH (08:18)
[2020-08-10] MEDS: DEXAMETHASONE SOD PHOSPHATE 10 MG/ML 1 ML VIAL IV SCH (08:18)
[2020-08-10] MEDS: ZINC SULFATE 220 MG CAP PO SCH (08:19)
[2020-08-10] MEDS: ASCORBIC ACID 500 MG TAB PO SCH (08:19)
[2020-08-10 09:46] VITALS: RESP 18
--- NOTE | 2020-08-10 11:15 | P.PN ---
Subjective Progress Note Date: 08/10/20 Principal diagnosis: Acute hypoxic respiratory failure Code 19 pneumonia Secondary bacterial pneumonia Hypothyroidism Elevated d-dimer due to inflammatory process GERD 08/10/2020, patient remains on supplemental oxygen desaturates with activity and exertion continue deep breathing exercises incentive spirometry, cough congestion shortness breath is improved, patient sleeping most of time and prone positioning, patient is being arranged for home oxygen 2 L, agree with discharge planning on oral Decadron and oral antibiotics with follow-up on telemetry medicine as outpatient 08/09/2020, patient seen eval examined during the rounds labs reviewed medications reviewed care plan discussed, respiratory status remains stable on supplemental oxygen however room air on activity and exertion does drop down into mid 80s hemodynamically otherwise stable cough congestion slightly better 08/08/2020, patient seen eval examined during the rounds labs reviewed medications reviewed care plan discussed, is still short of breath on activity and exertion says stop down to 84 to 88%, wheezing have improved, remains on full therapy for covert 19 pneumonia 08/07/2020, patient seen eval examined during the rounds labs reviewed medications reviewed still get short of breath on activity and exertion, especially during coughing, patient remains on steroids breathing treatments and broad-spectrum antibiotics on 2 L nasal cannula, 08/06/2020, patient seen eval reexamined during the rounds labs reviewed medications reviewed care plan discussed, patient continued to have cough shortness of breath, any sputum production, discussed with primary service as well as the RN to obtain a sputum sample patient remains on broad-spectrum antibiotics, and steroids with supplemental oxygen, patient noted to have elevated d-dimer coming down, inflammatory parameters including ferritin, LDH and C-reactive protein elevated pro calcitonin is also elevated This is a 50-year-old male with prior medical history significant for hypothyroidism and GERD and chronic migraine headache she he came into the hospital with tooth the day history of increased cough shortness of breath and difficulty in breathing, patient tested positive for cold with 19 on July 26, also his diagnosed with cold with pneumonia back in July 25 he has been having mild headache all along except 2 days ago started having difficulty in breathing, spiking fever oxygen saturation is 90-93% with supplemental oxygen they do improve, patient noted to have a bilateral patchy infiltrate as well as elevated d-dimer, currently patient is resting comfortably but does get short of breath intermittently especially on activity Objective - Vital Signs Vital signs: Vital Signs Temp 98.3 F 08/10/20 08:00 Pulse 47 L 08/10/20 08:00 Resp 18 08/10/20 08:00 BP 104/71 08/10/20 08:00 Pulse Ox 91 L 08/10/20 08:00 Intake & Output 08/09/20 08/10/20 08/10/20 18:59 06:59 18:59 Intake Total 1200 Balance 1200 Intake: Oral 1200 Other: Voiding Method Toilet # Voids 1 2 - Exam - Constitutional General appearance: average body habitus, cooperative, disheveled - EENT Eyes: EOMI, PERRLA Ears: bilateral: normal - Neck Neck: normal ROM Carotids: bilateral: upstroke normal Thyroid: bilateral: normal size - Respiratory Respiratory: bilateral: wheezing - Cardiovascular Rhythm: regular Heart sounds: normal: S1, S2 - Gastrointestinal General gastrointestinal: normal bowel sounds, soft - Integumentary Integumentary: normal turgor - Neurologic Neurologic: CNII-XII intact - Musculoskeletal Musculoskeletal: gait normal, generalized weakness, strength equal bilaterally - Psychiatric Psychiatric: A&O x's 3, appropriate affect, intact judgment & insight - Labs CBC & Chem 7: 08/06/20 06:53 08/06/20 06:53 Labs: Microbiology - Last 24 Hours (Table) 08/04/20 09:41 Blood Culture - Preliminary Blood No Growth after 120 hours 08/04/20 09:26 Blood Culture - Preliminary Blood No Growth after 120 hours Assessment and Plan Assessment: Acute hypoxic respiratory failure Covid 19 pneumonia Secondary bacterial pneumonia Hypothyroidism Elevated d-dimer due to inflammatory process GERD Plan: Continue supplemental oxygen and as needed Deep breathing exercise incentive spirometry Prone positioning Patient is not a candidate for REMdesivir as he is out of beneficial timeframe of therapy Oral Decadron 6 mg daily to complete 10 day therapy Oral antibiotics Aspirin 325 mg daily with food as outpatient Further recommendations pending plan of care as per clinical response of the patient Agree with discharge planning follow-up in telemetry medicine in one week Time with Patient: Greater than 30
[2020-08-10 11:23] LABS: Glucose,Whole Blood 116 mg/dL (75-99)
--- NOTE | 2020-08-10 13:05 | PN ---
PROGRESS NOTE DATE OF SERVICE: 08/10/2020 REASON FOR FOLLOWUP: Pneumonia. INTERVAL HISTORY: The patient is currently afebrile. Patient is breathing comfortably. Patient denies having any chest pain. He did have some cough, occasional sputum. No nausea, no vomiting. No Abdominal pain or diarrhea. PHYSICAL EXAMINATION: Blood pressure is 104/71, pulse 47, temperature 98.3. He is 91% on 2 L nasal cannula. General description is a middle-aged male lying in bed in no distress. RESPIRATORY SYSTEM: Unlabored breathing, decreased intensity breath sounds. No wheeze. HEART: S1, S2. Regular rate and rhythm. ABDOMEN: Soft, no tenderness. LABS: Hemoglobin 13.9, white count 9.63. BUN of 21. Creatinine 0.8. DIAGNOSTIC IMPRESSION AND PLAN: Patient admitted to hospital with pneumonia, COVID-19 infection. This patient has been treated with dexamethasone, Lovenox, zinc, along with antibiotic with concern for possible bacterial pneumonia seemed to have shown overall clinical improvement. Continue with current and monitor clinical course closely. MMODL / IJN: [id number] /
[2020-08-10 14:11] VITALS: BP 101/58; PULSE 70; TEMP 97.7
[2020-08-10] MEDS: SODIUM CHLORIDE 0.9% 1,000 ML IV SCH (15:05)
[2020-08-10 15:38] VITALS: BMI 29.9
== END 2020-08-10 17:24 | disposition home or self-care (01) | DRG 177 ==
LOC: EC 09:07 → 4SSUR 11:27
PROVIDERS: ADMIT Internal Medicine; ATTEND Internal Medicine
DX: U07.1 COVID-19 (principal); J12.82 Pneumonia due to coronavirus disease 2019; J15.9 Unspecified bacterial pneumonia; J96.01 Acute respiratory failure with hypoxia; D72.810 Lymphocytopenia; E03.9 Hypothyroidism, unspecified; K21.9 Gastro-esophageal reflux disease without esophagitis; Z79.890 Hormone replacement therapy; R00.1 Bradycardia, unspecified; G43.909 Migraine, unspecified, not intractable, without status migrainosus; K59.00 Constipation, unspecified; R79.1 Abnormal coagulation profile; Z90.89 Acquired absence of other organs; Z90.49 Acquired absence of other specified parts of digestive tract; Z79.899 Other long term (current) drug therapy
CPT/HCPCS: 36415; 71045; 80048; 80053; 82728; 83605; 83615; 83625; 83735; 84145; 84443; 85025; 85379; 85610; 85730; 86140; 87040; 87070; 87205; 93005; 93306; 94640; 94760; 96361; 96365; 96366; 99285

== ENCOUNTER → 2020-08-28 | Outpatient (CLI) | payer OTHER ==
--- NOTE | 2020-08-28 16:51 | CT ---
EXAMINATION TYPE: CT angio chest DATE OF EXAM: 08/28/2020 COMPARISON: Radiograph 08/04/2020 HISTORY: 50-year-old male I27.82, chronic pulmonary embolism. Chest pain and difficulty breathing. Hi story of covid. TECHNIQUE: Contiguous axial scanning of the chest performed with IV Contrast, patient injected with 1 00ml mL of Isovue 370. Coronal/sagittal MIP reconstructions performed. CT DLP: 421.4 mGycm Automated exposure control for dose reduction was used. FINDINGS: Heart normal size without pericardial effusion. Slight reflux of contrast into the hepatic veins. Borderline ectatic ascending aorta 3.6 cm in bovine configuration to the aortic arch. Scattered nonenlarged and borderline to mildly enlarged mediastinal lymph nodes measuring up to 1.1 c m long paratracheal region, 1.6 cm subcarinal, 1.0 cm right hilum. Trace left pleural effusion. Multifocal patchy irregular areas of consolidation especially in the per iphery of the lungs and along the bronchovascular bundles. There is a more groundglass opacities left upper lobe. There is borderline caliber to the main right and left pulmonary arteries at 2.5 cm each. Satisfactor y opacification of the pulmonary arterial system without evidence for pulmonary embolism. Visualized upper abdomen shows moderate stool burden. Bones: Mild multilevel degenerative disc disease. No osseous destructive process. IMPRESSION: 1. THERE MAY BE UNDERLYING PULMONARY ARTERIAL HYPERTENSION. NO EVIDENCE FOR PULMONARY EMBOLUS. 2. MULTIFOCAL BILATERAL IRREGULAR AREAS OF PERIPHERAL CONSOLIDATION. SUSPECT AT LEAST SOME OF THESE O PACITIES TO REFLECT PROGRESSION TO SCARRING. THERE ARE GROUNDGLASS OPACITIES IN THE LEFT UPPER LOBE T HAT HAVE A MORE TYPICAL APPEARANCE OF ACUTE COVID PNEUMONIA. 3. TRACE LEFT EFFUSION.
== END | disposition home or self-care (01) ==
LOC: RADCTMAIN 16:13
PROVIDERS: ATTEND Internal Medicine Sleep Medicine
DX: U07.1 COVID-19 (principal); J12.82 Pneumonia due to coronavirus disease 2019; J90 Pleural effusion, not elsewhere classified
CPT/HCPCS: 71275; Q9967

== ENCOUNTER 2022-11-06 12:26 | Emergency (ER) | payer BC ==
[2022-11-06 12:32] VITALS: RESP 18; TEMP 97.9
--- NOTE | 2022-11-06 13:05 | ED ---
Chest Pain HPI - General Chief Complaint: Chest Pain Stated Complaint: chest pain Time Seen by Provider: 11/06/22 12:34 Source: patient, RN notes reviewed, old records reviewed Limitations: no limitations - History of Present Illness Initial Comments: This is a 52-year-old male the ER with chest pain today. Patient presents with anterior chest pain and pressure right-sided his neck and jaw. Patient's pain occurred during sexual activity this morning. Does admit to taking Viagra last night. Patient has no travel history or sick contacts no other complaints mild nausea no vomiting no current shortness of breath just heaviness on his chest. Patient does not have high blood pressure high cholesterol or diabetes, he is neck smoker with no strong family history of heart disease MD Complaint: chest pain -: minutes(s) Onset: during exertion Pain Location: left chest, epigastric Pain Radiation: none Severity: moderate Severity scale (1-10): 4 Quality: tightness, heaviness Consistency: constant Improves With: nothing Worsens With: exertion Anginal Symptoms: dyspnea Other Symptoms: palpitations Treatments Prior to Arrival: none - Related Data Home Medications Medication Instructions Recorded Confirmed Levothyroxine Sodium [Synthroid] 50 mcg PO DAILY 08/05/14 08/04/20 Pantoprazole Sodium [Protonix] 40 mg PO HS 08/05/14 08/04/20 ALPRAZolam [Xanax] 0.5 mg PO BID PRN 08/04/20 08/04/20 Acetaminophen Tab [Tylenol] 1,000 mg PO Q6H PRN 08/04/20 08/04/20 Citalopram Hydrobromide [CeleXA] 20 mg PO HS 08/04/20 08/04/20 Tamsulosin HCl [Flomax] 0.8 mg PO HS 08/04/20 08/04/20 Previous Rx's Medication Instructions Recorded Doxycycline [Vibramycin] 100 mg PO BID 4 Days #8 cap 08/10/20 dexAMETHasone [Dexamethasone] 6 mg PO DAILY 5 Days #5 tablet 08/10/20 Allergies Allergy/AdvReac Type Severity Reaction Status Date / Time diclofenac [From Cataflam] Allergy Rash/Hives Verified 11/06/22 12:33 Review of Systems ROS Statement: Those systems with pertinent positive or pertinent negative responses have been documented in the HPI. ROS Other: All systems not noted in ROS Statement are negative. EKG Findings - EKG Comments: EKG Findings:: EKG shows sinus rhythm 61 NV 158 QRS 102 QTc 403 - EKG Results: EKG: interpreted by MICHAEL Past Medical History Past Medical History: GERD/Reflux, Thyroid Disorder Additional Past Medical History / Comment(s): hx migraine, constipation, bloating and change in stool, History of Any Multi-Drug Resistant Organisms: None Reported Past Surgical History: Appendectomy, Orthopedic Surgery, Tonsillectomy Additional Past Surgical History / Comment(s): left knee arthroscopy x 2, left arm tendon repair Past Anesthesia/Blood Transfusion Reactions: No Reported Reaction Past Psychological History: No Psychological Hx Reported Smoking Status: Never smoker Past Alcohol Use History: Rare Past Drug Use History: None Reported - Past Family History Mother Family Medical History: No Reported History General Exam General appearance: alert, in no apparent distress Head exam: Present: atraumatic, normocephalic, normal inspection Eye exam: Present: normal appearance, PERRL, EOMI. Absent: scleral icterus, conjunctival injection, periorbital swelling ENT exam: Present: normal exam, mucous membranes moist Neck exam: Present: normal inspection. Absent: tenderness, meningismus, lymphadenopathy Respiratory exam: Present: normal lung sounds bilaterally. Absent: respiratory distress, wheezes, rales, rhonchi, stridor Cardiovascular Exam: Present: regular rate, normal rhythm, normal heart sounds. Absent: systolic murmur, diastolic murmur, rubs, gallop, clicks GI/Abdominal exam: Present: soft, normal bowel sounds. Absent: distended, tenderness, guarding, rebound, rigid Extremities exam: Present: normal inspection, full ROM, normal capillary refill. Absent: tenderness, pedal edema, joint swelling, calf tenderness Back exam: Present: normal inspection Neurological exam: Present: alert, oriented X3, CN II-XII intact Psychiatric exam: Present: normal affect, normal mood Skin exam: Present: warm, dry, intact, normal color. Absent: rash Course Vital Signs 11/06/22 11/06/22 11/06/22 12:29 14:00 15:00 Temperature 97.9 F Pulse Rate 69 62 58 L Respiratory 18 18 18 Rate Blood Pressure 114/71 110/66 109/68 O2 Sat by Pulse 98 96 96 Oximetry 11/06/22 16:38 Temperature Pulse Rate 55 L Respiratory 18 Rate Blood Pressure 103/69 O2 Sat by Pulse 96 Oximetry - Reevaluation(s) Reevaluation #1: 11/06/22 13:28 Medical records reviewed Reevaluation #2: 11/06/22 13:29 Patient's chest pain persists here in the emergency department Reevaluation #3: 11/06/22 13:29 Patient informed results questions answered 11/06/22 16:49 And offered observation and second troponin, patient states 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 sent in by a medical professional or institution? @ -no Did you speak to anyone other than the patient for history? @ -no Did you review nursing and triage notes? @ -agree Were old charts reviewed? @ -no Differential Diagnosis? @ -prior EKG interpreted by me (3pts min.)? @ -yes X-rays interpreted by me (1pt min.)? @ -yes CT interpreted by me (1pt min.)? @ -no U/S interpreted by me (1pt. min.)? @ -no What testing was considered but not performed? (CT, X-rays, U/S, labs)? Why? @ -no What meds were considered but not given? Why? @ -no Did you discuss the management of the patient with other professionals? @ -no Did you reconcile home meds? @ -no Was smoking cessation discussed for >3mins.? @ -no Was critical care preformed (if so, how long)? @ -no Were there social determinants of health that impacted care today? How? (H omelessness, low income, unemployed, alcoholism, drug addiction, transportation, low edu. Level, literacy, decrease access to med. care, snf, rehab)? @ -no Was there de-escalation of care discussed even if they declined? (Discuss DNR or withdrawal of care, Hospice)? @ -no What co-morbidities impacted this encounter? (DM, HTN, Smoking, COPD, CAD, Cancer, CVA, Hep., AIDS, mental health diagnosis, sleep apnea, morbid obesity)? @ -none Was patient admitted / discharged? @ -52 male to the emergency department with chest pain. Chest pain throughout ER stay the resolving, patient feels improved currently, negative EKG negative troponin patient can be discharged home Discharge Undiagnosed new problem with uncertain prognosis? @ -no Drug Therapy requiring intensive monitoring for toxicity (Heparin, Nitro, Insulin, Cardizem)? @ -no Were any procedures done? @ -no Diagnosis/symptom? @ -Chest pain Acute, or Chronic, or Acute on Chronic? @ -no Uncomplicated (without systemic symptoms) or Complicated (systemic symptoms)? @ -uncomplicated Side effects of treatment? @ -no Exacerbation, Progression, or Severe Exacerbation] @ -no Poses a threat to life or bodily function? @ -yes if AcS Reevaluation #5: 11/06/22 13:29 Differential Chest Pain: Stable Angina, Unstable Angina, STEMI, NSTEMI Aortic Dissection, Pneumothorax, Musculoskeletal, Esophageal Spasm GERD, Cholecystitis, Pancreatitis, Zoster, this is not meant to be an all-inclusive list. Studies Chest x-ray is negative for acute disease Chest Pain MDM - MDM 52 male to the emergency department with chest pain. Chest pain throughout ER stay the resolving, patient feels improved currently, negative EKG negative troponin patient can be discharged home Disposition Clinical Impression: Chest pain Disposition: HOME SELF-CARE Condition: Good Instructions (If sedation given, give patient instructions): Chest Pain (ED) Is patient prescribed a controlled substance at d/c from ED?: No Referrals: Barbie Mayo DO [Primary Care Provider] - 1-2 days
[2022-11-06 13:41] LABS: Basophils # (A) 0.1 k/uL (0-0.2); Basophils % (A) 1 %; Eosinophils # (A) 0.1 k/uL (0-0.7); Eosinophils % (A) 2 %; HCT 43.6 % (39.0-53.0); HGB 14.9 gm/dL (13.0-17.5); Lymphocytes # (A) 1.7 k/uL (1.0-4.8); Lymphocytes % (A) 23 %; MCH 30.7 pg (25.0-35.0); MCHC 34.1 g/dL (31.0-37.0); Mean Platelet Volume 6.9; Monocytes # (A) 0.4 k/uL (0-1.0); Monocytes % (A) 6 %; Neutrophils # (A) 4.8 k/uL (1.3-7.7); Neutrophils % (A) 67 %; Platelet Count 236 k/uL (150-450); RBC 4.84 m/uL (4.30-5.90); RDW 11.9 % (11.5-15.5); WBC 7.2 k/uL (3.8-10.6)
--- NOTE | 2022-11-06 13:49 | XR ---
EXAMINATION TYPE: XR chest 2V DATE OF EXAM: 11/06/2022 1:27 PM COMPARISON: Chest radiographs from 08/04/2020 TECHNIQUE: XR chest 2V Frontal and lateral views of the chest. CLINICAL INDICATION:Male, 52 years old with history of Chest Pain; FINDINGS: Lungs/Pleura: There is no evidence of pleural effusion, focal consolidation, or pneumothorax. Pulmonary vascularity: Unremarkable. Heart/mediastinum: Cardiomediastinal silhouette is unremarkable. Musculoskeletal: No acute osseous pathology. IMPRESSION: No acute cardiopulmonary disease/process.
[2022-11-06 13:50] LABS: ALT 30 U/L (4-49); AST 31 U/L (17-59); African American GFR (CKD) 88 (>60 ml/min/1.73 sqM); Albumin 4.1 g/dL (3.5-5.0); Alkaline Phosphatase 44 U/L (38-126); Anion Gap 9 mmol/L; Blood Urea Nitrogen 19 mg/dL (9-20); Calcium 9.3 mg/dL (8.4-10.2); Carbon Dioxide 26 mmol/L (22-30); Chloride 104 mmol/L (98-107); Glucose 88 mg/dL (74-99); Lipase 194 U/L (23-300); Magnesium 1.9 mg/dL (1.6-2.3); Non-African American GFR(CKD) 76 (>60 ml/min/1.73 sqM); Potassium 4.2 mmol/L (3.5-5.1); Sodium 139 mmol/L (137-145); Total Protein 6.9 g/dL (6.3-8.2)
[2022-11-06 13:55] LABS: INR 0.9 (<1.2); Partial Thromboplastin Time 22.5 sec (22.0-30.0); Prothrombin Time 9.9 sec (9.0-12.0)
[2022-11-06 16:41] VITALS: BP 103/69; PULSE 55
== END 2022-11-06 16:49 | disposition home or self-care (01) ==
LOC: EC 12:26
DX: R07.89 Other chest pain (principal); K21.9 Gastro-esophageal reflux disease without esophagitis; E07.9 Disorder of thyroid, unspecified; Z88.8 Allergy status to other drugs, medicaments and biological substances; Z79.890 Hormone replacement therapy; Z79.899 Other long term (current) drug therapy
CPT/HCPCS: 36415; 71046; 80053; 83690; 83735; 83880; 84484; 85025; 85379; 85610; 85730; 93005; 99285

== ENCOUNTER → 2023-06-07 | Outpatient (CLI) | payer BC ==
--- NOTE | 2023-06-07 09:47 | US ---
EXAMINATION TYPE: US thyroid st tissue head/neck DATE OF EXAM: 06/07/2023 COMPARISON: 02/16/2018 CLINICAL INDICATION: Male, 53 years old with history of E04.9 NONTOXIC GOITER, UNSPECIFIED; On thyroi d meds. GLAND SIZE: Right Lobe: 4.3 x 1.5 x 2.3 cm Overall Parenchyma: heterogenous Left Lobe: 4.0 x 2.0 x 1.8 cm Overall Parenchyma: heterogenous Isthmus Thickness: 0.5 cm NODULES RIGHT: # of nodules measured on right: 0 LEFT: # of nodules measured on left: 0 ISTHMUS: # of nodules measured in the isthmus: 0 Bilateral neck scanned, no evidence of lymphadenopathy. IMPRESSION: Very heterogeneous thyroid parenchyma could reflect goiter or diffuse thyroiditis. No discrete nodule s are seen.
== END | disposition home or self-care (01) ==
LOC: RADUSWWP 05-17 07:03
PROVIDERS: ATTEND Family Medicine
DX: E04.9 Nontoxic goiter, unspecified (principal)
CPT/HCPCS: 76536

== ENCOUNTER 2023-06-16 12:04 | Day surgery (SDC) | payer BC ==
[2023-06-13 13:46] VITALS: BMI 35.7
[~2023-06-16 12:04] MED LIST changes: +LIDOCAINE 1% (10MG/ML) FOR IV START INTRADERMA PRN
[2023-06-16 13:34] VITALS: RESP 16; TEMP 98
[2023-06-16] MEDS ORDERED: PROPOFOL 10 MG/ML 20 ML VIAL IV ONE (14:43)
--- NOTE | 2023-06-16 14:52 | P.PCN ---
Date of Procedure: 06/16/23 Procedure(s) Performed: BRIEF HISTORY: Patient is a 53-year-old, pleasant, white male scheduled for an upper endoscopy as a part of evaluation of long-standing history of GERD.. Presently on Protonix 40 mg daily PROCEDURE PERFORMED: Esophagogastroduodenoscopy with biopsy. PREOPERATIVE DIAGNOSIS: Long-standing history of GERD. IV sedation per anesthesia. PROCEDURE: After informed consent was obtained, the patient was brought into the endoscopy unit. IV sedation was administered by Anesthesia under continuous monitoring. Initially the Olympus GIF-140 video endoscope was inserted into the mouth. Esophagus intubated without any difficulty. It was gradually advanced into the stomach and duodenum and carefully examined. The bulb and the second part of the duodenum appeared normal. The scope at this time was withdrawn to the stomach, adequately insufflated with air, and upon careful examination, mucosa of the antrum, body, cardia and the fundus appeared normal. The scope was then withdrawn into the esophagus. Moderate hiatal hernia noted. The GE junction was located at 39 cm from the incisors. There was a 3 mm tongue of Elkins's appearing mucosa just proximal to the GE junction that was biopsied. The rest of the esophagus appeared normal. There were no erosions or ulcerations seen and the patient tolerated the procedure well. IMPRESSION: 1. Small hiatal hernia. 2. 3 mm tongue of Elkins's appearing mucosa just proximal to the GE junction status post biopsy. RECOMMENDATIONS: The findings of this examination were discussed with the patient swelling as his family. He was advised to follow with the biopsy results. He will continue with Protonix 40 mg daily and follow antireflux measures. If the biopsy confirms the presence of Elkins's esophagus he was advised to have a repeat upper endoscopy in 3 years..
[2023-06-16 15:18] VITALS: BP 124/77; PULSE 62
== END 2023-06-16 15:28 | disposition home or self-care (01) ==
LOC: ORWHC2ENDO 12:04
PROVIDERS: ATTEND Internal Medicine Gastroenterology
DX: K22.70 Barrett's esophagus without dysplasia (principal); K44.9 Diaphragmatic hernia without obstruction or gangrene; K21.9 Gastro-esophageal reflux disease without esophagitis; Z79.899 Other long term (current) drug therapy; Z79.890 Hormone replacement therapy; Z88.6 Allergy status to analgesic agent; Z87.891 Personal history of nicotine dependence
CPT/HCPCS: 88305; 43239; J2704